=== PATIENT | male | born 1955 | race Caucasian/White ===

== ENCOUNTER 2016-08-02 06:41 | Inpatient (IN) | payer BC ==
[2016-06-30 13:27] VITALS: BMI 33.0
--- NOTE | 2016-06-30 14:02 | PAT Medication Instructions ---
Service Date Jun 30, 2016. Current Home Medication List Aspirin (Aspirin Ec), 81 MG PO QAM Atenolol (Tenormin), 25 MG PO QAM Atorvastatin (Lipitor), 80 MG PO QPM Clopidogrel (Plavix), 75 MG PO QAM Lisinopril (Zestril), 10 MG PO QAM Nitroglycerin (Nitrostat), 0.4 MG UT PRN Medication Instructions For Your Scheduled Surgery - Check with surgeon/cardiology/family doctor for instructions: Clopidogrel (Plavix), 75 MG PO QAM - Hold the following medications the morning of surgery: Lisinopril (Zestril), 10 MG PO QAM - Take the following medications the morning of surgery with a sip of water: Atenolol (Tenormin), 25 MG PO QAM Aspirin (Aspirin Ec), 81 MG PO QAM (okay to continue per surgeon instructions ) Nitroglycerin (Nitrostat), 0.4 MG UT PRN (if needed) - Take the following medications as scheduled the night before surgery: Atorvastatin (Lipitor), 80 MG PO QPM Nitroglycerin (Nitrostat), 0.4 MG UT PRN (if needed) If you have any questions please call us at [phone] (Gabriella Badillo PA-C) or [phone] or [phone]
[2016-06-30 14:27] LABS: BASO % 0.2 %; BASO ABS # 0.02 K/uL (0-0.2); COMPLETE YES; EOS % 2.9 %; HEMATOCRIT 43.1 % (42-52); IG% 0.3 %; LYMPH % 14.6 %; LYMPH ABS # 1.44 K/uL (1.2-3.4); MEAN CELL VOLUME 91.5 fL (80-100); MEAN CORPUSCULAR HEMOGLOBIN 31.2 pg (25-34); MEAN CORPUSCULAR HGB CONC 34.1 g/dl (32-36); MEAN PLATELET VOLUME 10.2 fL (7.4-10.4); MONO % 9.1 %; NEUT % 72.9 %; PLATELET COUNT 264 K/uL (130-400); RED BLOOD COUNT 4.71 M/uL (4.7-6.1); WHITE BLOOD COUNT 9.85 K/uL (4.8-10.8)
[2016-06-30 14:49] LABS: INR 1.1 (0.9-1.1); PARTIAL THROMBOPLASTIN RATIO 1.2; PROTHROMBIN TIME (PATIENT) 11.4 SECONDS (9.0-12.0)
[2016-06-30 14:54] LABS: BUN/CREATININE RATIO 15.3 (10-20); CREATININE 0.96 mg/dl (0.60-1.40); POTASSIUM 3.8 mmol/L (3.5-5.1)
[2016-06-30 15:01] LABS: CALCIUM 9.3 mg/dl (8.5-10.1); ESTIMATED AVERAGE GLUCOSE 123 mg/dl; HA1C FLAG Normal (Normal)
[2016-06-30 15:01] LABS: URINE APPEARANCE CLEAR (CLEAR); URINE BILIRUBIN NEG (NEG); URINE COLOR YELLOW; URINE EPITHELIAL CELL AUTO 0-5 /lpf (0-5); URINE NITRITE NEG (NEG); URINE PH 5.5 (4.5-7.5); URINE SPECIFIC GRAVITY 1.017 (1.000-1.030); UROBILINOGEN NEG (NEG); ZZUR CULT IF INDIC CLEAN CATCH NO
[2016-06-30 15:09] LABS: MANUAL MICROSCOPIC REQUIRED? NO; REVIEW REQ? NO
--- NOTE | 2016-08-01 15:13 | HISTORY & PHYSICAL EXAMINATION ---
DATE OF ADMISSION: 08/02/2016 CHIEF COMPLAINT: Chronic right knee pain. HISTORY OF PRESENT ILLNESS: This is a 60-year-old male patient of Dr. Arias'trevor complaining of chronic right knee pain, longstanding, now progressively getting worse. The patient has failed conservative treatment including aspirin, ice and a brace. The patient cannot use anti-inflammatories due to Plavix usage. The patient has increased pain with weightbearing activities and his pain does interfere with his activities of daily living. The patient has been diagnosed with end-stage osteoarthritis per clinical and radiographic exams. PAST MEDICAL HISTORY: Angina, coronary artery disease status post an SD in 2010, hypertension, hypercholesterolemia, history of a mini stroke, stent placement. SOCIAL HISTORY: Nonsmoker, nondrinker. PAST SURGICAL HISTORY: Cataract surgery, left knee replacement and stent placement. FAMILY HISTORY: Noncontributory. REVIEW OF SYSTEMS: The patient complains of chronic right knee pain, otherwise denies any shortness of breath, chest pain, nausea, vomiting or any other joint complaints. MEDICATIONS: 81 mg aspirin daily, Plavix 75 mg daily, atenolol 25 mg daily, lisinopril 10 mg daily, nitroglycerin 1 tablet sublingual, may repeat every 5 minutes until relief, atorvastatin 80 mg daily. ALLERGIES: INCLUDE ADHESIVE DRESSING. PHYSICAL EXAMINATION: GENERAL: Well-developed, well-nourished 60-year-old male in no acute distress. He is alert and oriented x3 and pleasant. HEAD, EYES, EARS, NOSE, AND THROAT: Normocephalic, atraumatic. Extraocular motions are intact. Pupils are equal and reactive to light. HEART: Regular rate and rhythm, no murmurs appreciated. LUNGS: Clear. ABDOMEN: Soft and nontender, bowel sounds are present. EXTREMITIES: Right knee reveals a mild effusion with limited range of motion of 0-120. He has a varus deformity with medial joint line tenderness. He has 5/5 strength with crepitation and passive range of motion. Neurologically and neurovascularly he is intact in his right lower extremity. DIAGNOSES: Right knee end-stage osteoarthritis, history of angina, coronary artery disease status post an SD in 2010, hypertension, hypercholesterolemia, history of mini stroke and history of stent placements. PLAN: The patient was advised of his diagnosis. Indications, risks, benefits, and postop course have all been reviewed. The patient wishes to proceed with a right total knee arthroplasty. Necessary consent forms, preoperative testing and clearances will be obtained.
[2016-08-02] VITALS (8 sets, daily range): BP systolic 114–166; BP diastolic 69–98; PULSE 56–85; TEMP 36.4–36.6; O2SAT 96–98; Ht 182.9 cm; Wt 112.2 kg
[~2016-08-02] VITALS: Ht 182.9 cm; Wt 112.2 kg
[~2016-08-02 06:41] MED LIST: ACETAMINOPHEN 500 MG TAB PO SCH; ASPI81TA28 PO; ATEN-173 PO; ATOR-26 PO; BUPIVACAINE 0.25% 30 ML VIAL ONE; BUPIVACAINE 0.5 % 5 MG/1 ML PF 10ML VIAL ONE; BUPIVACAINE LIPOSOME 266 MG, BUPIVACAINE/EPINEPHRINE INJ 50 ML, SODIUM CHLORIDE 0.9% PF... INFIL SCH; CEFAZOLIN 2000 MG/60 ML D5W 60 ML IV SCH; CLOP1TAB15 PO; CeleBREX 200 MG CAP PO SCH; DEXAMETHASONE 4 MG TAB PO SCH; FAMOTIDINE 20 MG TAB PO SCH; GABAPENTIN 300 MG CAP PO SCH; LACTATED RINGER'S 1000ML IV SCH; LACTATED RINGER'S 500 ML IV SCH; LISI-461 PO; METOCLOPRAMIDE HCL 10 MG TAB PO SCH; NTRGSL/4 UT; ROPIVACAINE 5MG/ML 30 ML 150 MG, BUPIVACAINE/EPINEPHR 0.5% MPF 30 ML, KETOROLAC TROMETH... INFIL SCH
[2016-08-02] MEDS ORDERED: LACTATED RINGER'S 1000ML 1,000 ML IV PRN (09:12)
[2016-08-02] MEDS ORDERED: FENTANYL CITRATE INJ 50 MCG/1 ML 2 ML VIAL IV PRN (09:15)
[2016-08-02] MEDS ORDERED: ONDANSETRON INJ 2 MG/ML 2 ML VIAL IV PRN ×2 (09:15→13:00)
[2016-08-02] MEDS ORDERED: MIDAZOLAM HCL 1 MG/ML 2ML VIAL ONE ×2 (09:36→11:26)
[2016-08-02] MEDS ORDERED: FENTANYL CITRATE INJ 50 MCG/1 ML 2 ML VIAL ONE (09:36)
--- NOTE | 2016-08-02 10:09 | History & Physical Bridge Note ---
H&P Re-Evaluation Bridge Note: I have examined the patient, reviewed the History & Physical and in the interval since the performance of the History & Physical I have noted the following changes of clinical significance: No changes noted
[2016-08-02] MEDS ORDERED: ORTHO JOINT ANESTHETIC ONE (10:29)
[2016-08-02] MEDS ORDERED: PHENYLEPHRINE 100MCG/ML 5ML SYR ONE (10:59)
[2016-08-02] MEDS ORDERED: EpHEDrine SULFATE 50MG/5ML SYR ONE (10:59)
[2016-08-02] MEDS ORDERED: PROPOFOL IV EMULSION 10 MG/ML 20 ML VIAL IV ONE ×3 (10:59→12:27)
[2016-08-02] MEDS ORDERED: BACITRACIN 50000 UNIT VIAL IR ONE (11:20)
[2016-08-02] MEDS ORDERED: POVIDONE-IODINE OP SOLN 30 ML BTL TOP ONE (11:20)
[2016-08-02] MEDS ORDERED: SOD PHOSPHATE/SOD BIPHOSPHATE ENEMA 132 ML BTL PR PRN (13:00)
[2016-08-02] MEDS ORDERED: MoRPHine SULFATE 2 MG/ML CARP IV PRN (13:00)
[2016-08-02] MEDS ORDERED: ZOLPIDEM TARTRATE 5 MG TAB PO PRN (13:00)
[2016-08-02] MEDS ORDERED: MAGNESIUM HYDROXIDE SUSP 30 ML UDC PO PRN (13:00)
[2016-08-02] MEDS ORDERED: NITROGLYCERIN 0.4 MG SL PER TAB CHARGE UT PRN (13:00)
[2016-08-02] MEDS ORDERED: BISACODYL 10 MG SUPP PR PRN (13:00)
--- NOTE | 2016-08-02 13:03 | [facility] Operative Report ---
Operative Report Operative Date Aug 02, 2016. Pre-Operative Diagnosis Right knee degenerative joint disease Post-Operative Diagnosis same Procedure(s) Performed right total knee arthroplasty Surgeon Dr. Saeed Arias Bus Transportation Manager Surgeon(s) Kg Pizarro PA-C Estimated Blood Loss 5 ml Findings tricompartmental djd oa varus grade 4 medial and patellofemoral Specimens A. Right knee bone and tissue Drains 2 hemovac Anesthesia spinal sedation orthomix Complication(s) None Disposition Recovery Room / PACU Indications end stage djd oa I attest to the content of the Intraoperative Record and any orders documented therein. Any exceptions are noted below.
--- NOTE | 2016-08-02 13:26 | Anesthesiology Progress Note ---
Anesthesia Post Op Note Date & Time Aug 02, 2016 at 13:25 Vital Signs Pain Intensity: 0 Vital Signs Past 12 Hours Date Time Temp Pulse Resp B/P Pulse Ox O2 Delivery O2 Flow Rate FiO2 08/02/16 13:14 83 21 105/61 96 08/02/16 13:14 84 21 08/02/16 13:09 86 22 96 08/02/16 13:09 86 22 08/02/16 13:08 121/84 08/02/16 13:07 86 17 08/02/16 13:07 88 17 96 08/02/16 13:03 100/65 08/02/16 13:02 93 23 08/02/16 13:02 92 23 96 08/02/16 12:58 102/65 08/02/16 12:57 36.5 89 16 100/69 96 Nasal Cannula 2 08/02/16 12:57 90 18 08/02/16 12:57 90 18 95 08/02/16 08:09 36.6 56 20 166/98 98 Room Air Notes Mental Status: alert / awake / arousable, participated in evaluation Nausea / Vomiting: adequately controlled Pain: adequately controlled Airway Patency, RR, SpO2: stable & adequate BP & HR: stable & adequate Hydration State: stable & adequate Neuraxial Anesthesia: was administered, sensory block is resolving Anesthetic Complications: no major complications apparent
--- NOTE | 2016-08-02 13:36 | DIAGNOSTIC IMAGING REPORT ---
RIGHT KNEE 2 VIEWS History: Right total knee arthroplasty. Degenerative arthritis. Postop. FINDINGS: The patient is status post a right total knee arthroplasty. The hardware is intact. No fracture or dislocation. Skin ava and surgical drains are in place. IMPRESSION: Right total knee arthroplasty. No evidence for hardware complication. Electronically signed by: Shekhar Domingo M.D. 08/02/2016 1:34 PM
--- NOTE | 2016-08-02 13:49 | OPERATIVE REPORT ---
DATE OF OPERATION: 08/02/2016 INDICATION FOR PROCEDURE: The patient is a 60-year-old male with chronic progressive osteoarthritis in his right knee. He had a previous successful left knee replacement. In his right knee, he has a varus knee. He is [id number] in the medial compartment. He has subluxation of the femur and the tibia. He has tricompartmental DJD with tricompartmental osteophytes and some lateral alignment of the patella. PREOPERATIVE DIAGNOSIS: End-stage severe osteoarthritis of the right knee. POSTOPERATIVE DIAGNOSIS: Same. PROCEDURE: Right total knee arthroplasty. SURGEON: Dr. Arias. JUNIOR BRAND MANAGER: GITA Robles. ANESTHESIA: Spinal, IV sedation, regional block, and ortho mix. OPERATIVE PROCEDURE: The patient was taken to the operating room and anesthetized under anesthesia as dictated. He was placed supine on the operating room table. Pneumatic tourniquet was placed about his right upper thigh. Then his right leg was examined under anesthesia. He does have a trace flexion contracture, but he had flexion only to 115 degrees and no ligamentous instability. He had a moderately large effusion. His right lower extremity was prepped and draped in sterile fashion. His right leg was elevated, exsanguinated with Esmarch bandage. Pneumatic tourniquet was raised to 350 mmHg because of his large size. An anterior incision made across the right knee. Skin was incised sharply. Subcutaneous flaps were elevated. An incision was made through the medial retinaculum carried up into the mid third of the quadriceps tendon and down to the medial tibial tubercle. Intra-articular findings demonstrated severe tricompartmental DJD. He had multiple loose bodies, tricompartmental osteophytes, grade 4 trochlear DJD, and grade 4 medial compartment DJD. I used the Banda \T\ Nephew Journey 2.0, total knee arthroplasty system using Visionaire MRI templating. His femur was sized for 8 and tibia for 7. To expose the knee, the infrapatellar fat pad was resected. The cruciate ligaments and meniscus remnants were resected. The fat pad over the anterior femur for placement of the component in that area was resected. The lateral synovial bands were released. The femur was exposed. The custom femoral cutting block was pinned in position and the distal femoral cut was made. This allowed us to fully extend the knee and chris the patella, perform a subperiosteal peel lateral release around the patella and the width was measured and width reproduced using a freehand cut technique and a 35 patella component which was slightly biased to the medial side. He had a wide large patella but it was more narrow from superior to inferior and 35 was the best fit in that diameter. The excess lateral facet of the patella had to be beveled off to prevent any impingement of the bone on the femoral condyle of the prosthesis. Drill holes for the patella were made. The femur was re-exposed. The size 8 5-in-1 cutting block was pinned in position and then the anterior, posterior and chamfer cuts were made. Then the tibia was subluxed and the tibial cutting block was pinned in position and the proximal tibia cut was made. This revealed a large multiloculated cyst in the posterior tibial plateau centrally which was consistent with degenerative ganglion type cyst. This was curetted out. At the sclerotic medial side, a drill hole was placed for a cement fixation enhancement. All the osteophytes were resected about the tibia. We used the lamina welding machine operator thermit to balance the ligaments. The patient was a little tighter medial than lateral. We did a posteromedial releases along the subperiosteal tibia medial side. Then we went ahead and exposed the tibia and then placed the 7 component in external rotation in line with the tibial tubercle and the component was pinned in position. The punch for the stem was used. The femoral size 8 trial was inserted, centered and the notch cutting devices were used, and a collet was placed. There was still too much tightness in the medial side to have appropriate ligamentous balance. We went ahead and used the lamina welding machine operator thermit and pie crusted the MCL until there was appropriate release there and then went ahead and I was able to place in a 10 trial insert which gave balanced ligaments through full range of motion and patella tracked centrally with the patellar trial in place. The trials were removed. Then the anesthetic cocktail was injected per protocol. The knee was copiously irrigated with pulsatile lavage antibiotic solution with bacitracin. The final components were cemented with Simplex G cement. The final components were the Banda \T\ Nephew Journey 2.0 size 8 Oxinium right femoral component, the 7 tibial baseplate and the 10 poly insert and the 35 patella. While the cement cured, we used Betadine soak per protocol. The knee was then copiously irrigated with antibiotic solution and bacitracin. Two drains were brought out laterally and connected to Hemovac. The quadriceps tendon and medial retinaculum were closed with interrupted [id number] #1 Vicryl sutures after the knee was copiously irrigated with antibiotic solution with bacitracin. The knee was taken through full range of motion. Subcutaneous tissues were closed with interrupted 2-0 Vicryl. Skin closed with ava and a standard dressing was applied due to adhesive allergy. GITA Robles was my assistant signal maintainer and functioned as assistant signal maintainer throughout the procedure. He assisted in patient positioning, prepping, draping, leg positioning, instrument management, soft tissue retraction, and performed the part of the subcutaneous closure and assisted in skin closure and dressings and will participate in the postoperative care of the patient. I attest to the content of the Intraoperative Record and any orders documented therein. Any exceptio ns are noted below.
[2016-08-02] MEDS: D5W AND 1/2NSS + 20MEQ KCL 1,000 ML IV SCH (14:40)
[2016-08-02] MEDS ORDERED: MoRPHine SULFATE 4 MG/ML 1 ML CARP\\VIAL IV PRN (14:45)
[2016-08-02] MEDS ORDERED: PNEUMOCOCCAL POLYSACCHARIDES 25 MCG/0.5 ML VIAL/SYR IM. ONE (15:00)
[2016-08-02] MEDS ORDERED: PNEUMOCOCCAL ADMINISTRATION CHARGE ONE (15:00)
[2016-08-02] MEDS: ACETAMINOPHEN 500 MG TAB PO SCH ×2 (16:22→23:13)
[2016-08-02] MEDS: CEFAZOLIN IV 2,000 MG in DEXTROSE 5% 50ML 50 ML IV SCH (18:06)
[2016-08-02] MEDS: OXYCODONE HCL 10 MG TABCR (OXYCONTIN) PO SCH (21:04)
[2016-08-02] MEDS: DOCUSATE SODIUM 100 MG CAP PO SCH (21:04)
[2016-08-02] MEDS: ATORVASTATIN 40 MG TAB PO SCH (21:05)
[2016-08-03] MEDS: D5W AND 1/2NSS + 20MEQ KCL 1,000 ML IV SCH ×2 (00:45→11:36)
[2016-08-03] MEDS: CEFAZOLIN IV 2,000 MG in DEXTROSE 5% 50ML 50 ML IV SCH (01:30)
[2016-08-03 03:08] VITALS: BP 114/69; PULSE 64; TEMP 36.5; O2SAT 97
[2016-08-03 07:12] VITALS: BP 122/77; PULSE 61; TEMP 36.4; O2SAT 96
[2016-08-03 07:31] LABS: HEMATOCRIT 36.3 % (42-52); MEAN CELL VOLUME 91.9 fL (80-100); MEAN CORPUSCULAR HEMOGLOBIN 31.1 pg (25-34); MEAN CORPUSCULAR HGB CONC 33.9 g/dl (32-36); MEAN PLATELET VOLUME 10.5 fL (7.4-10.4); PLATELET COUNT 258 K/uL (130-400); RED BLOOD COUNT 3.95 M/uL (4.7-6.1); WHITE BLOOD COUNT 29.39 K/uL (4.8-10.8)
--- NOTE | 2016-08-03 07:47 | Orthopedic Progress Note ---
Orthopedic Progress Note Date of Service Aug 03, 2016. Subjective Post OP Day: 1 Reports: feeling well, pain controlled w PO medications, Denies: SOB, calf pain , chest pain, complaints, light headedness, nausea / vomiting Objective calves soft nontender, N/V intact, capillary refill less than 2 sec., dressing C /D/I, A&O x3, toes mobile Date Time Temp Pulse Resp B/P Pulse Ox O2 Delivery O2 Flow Rate FiO2 08/03/16 07:12 36.4 61 16 122/77 96 Room Air 08/03/16 03:08 36.5 64 14 114/69 97 Room Air 08/02/16 23:10 Room Air 08/02/16 22:54 36.4 76 16 114/69 96 Room Air 08/02/16 20:19 97 Room Air 08/02/16 19:49 36.5 85 16 123/75 96 Nasal Cannula 1.0 08/02/16 16:50 36.5 76 16 134/82 96 Nasal Cannula 1.0 08/02/16 15:55 36.4 78 16 121/73 98 08/02/16 15:35 Nasal Cannula 1.0 08/02/16 14:41 72 16 128/82 96 Nasal Cannula 1.0 08/02/16 14:15 75 14 132/84 96 Nasal Cannula 1.0 08/02/16 13:40 100 Nasal Cannula 2.0 08/02/16 13:30 36.6 08/02/16 13:25 79 22 96 08/02/16 13:25 79 22 08/02/16 13:23 123/80 08/02/16 13:20 82 15 95 08/02/16 13:20 83 15 08/02/16 13:18 113/64 08/02/16 13:15 88 18 08/02/16 13:15 88 18 97 08/02/16 13:14 83 21 105/61 96 08/02/16 13:14 84 21 08/02/16 13:09 86 22 96 08/02/16 13:09 86 22 08/02/16 13:08 121/84 08/02/16 13:07 86 17 08/02/16 13:07 88 17 96 08/02/16 13:03 100/65 08/02/16 13:02 93 23 08/02/16 13:02 92 23 96 08/02/16 12:58 102/65 08/02/16 12:57 36.5 89 16 100/69 96 Nasal Cannula 2 08/02/16 12:57 90 18 08/02/16 12:57 90 18 95 08/02/16 08:09 36.6 56 20 166/98 98 Room Air Laboratory Results 24 Hours: Test 08/03/16 06:35 Hematocrit 36.3 % Hemoglobin 12.3 g/dL Assessment & Plan Assessment: POD #1, Right TKA Plan: PT/ OT DVT proph- Plavix/ ASA D/C planning- Home w OPPT As per medicine. Inhouse Planning Pain Management: Oxycontin, Morphine, PO Tylenol, Oxy IR DVT Prophylaxis: ASA, other (Plavix) Discharge Planning Discharge Planning: home with oppt Pain Management: Oxycontin, PO Tylenol, Oxy IR DVT Prophylaxis: TEDs, ASA, other (Plavix) Therapy: Physical Therapy, Occupational Therapy
[2016-08-03 08:03] LABS: BUN/CREATININE RATIO 17.5 (10-20); CALCIUM 8.2 mg/dl (8.5-10.1); CREATININE 0.85 mg/dl (0.60-1.40); POTASSIUM 4.5 mmol/L (3.5-5.1)
--- NOTE | 2016-08-03 08:28 | Anesthesiology Progress Note ---
Anesthesia Post Op Note Date & Time Aug 03, 2016 at 08:27 Vital Signs Pain Intensity: 0.0 Vital Signs Past 12 Hours Date Time Temp Pulse Resp B/P Pulse Ox O2 Delivery O2 Flow Rate FiO2 08/03/16 07:12 36.4 61 16 122/77 96 Room Air 08/03/16 03:08 36.5 64 14 114/69 97 Room Air 08/02/16 23:10 Room Air 08/02/16 22:54 36.4 76 16 114/69 96 Room Air Notes Mental Status: alert / awake / arousable, participated in evaluation Pt Amnestic to Procedure: Yes Nausea / Vomiting: adequately controlled Pain: adequately controlled Airway Patency, RR, SpO2: stable & adequate BP & HR: stable & adequate Hydration State: stable & adequate Neuraxial Anesthesia: sensory block resolved Anesthetic Complications: no major complications apparent
[2016-08-03] MEDS: ACETAMINOPHEN 500 MG TAB PO SCH ×3 (08:31→22:56)
[2016-08-03] MEDS: ASPIRIN 81 MG ECTAB PO SCH (08:32)
[2016-08-03] MEDS: DOCUSATE SODIUM 100 MG CAP PO SCH ×2 (08:32→20:23)
[2016-08-03] MEDS: MULTIVITAMIN TAB PO SCH (08:33)
[2016-08-03] MEDS: CLOPIDOGREL BISULFATE 75 MG TAB PO SCH (08:33)
[2016-08-03] MEDS: PANTOprazole SOD 40 MG TAB PO SCH (08:34)
[2016-08-03] MEDS: LISINOPRIL 10 MG TAB PO SCH (08:34)
[2016-08-03] MEDS: OXYCODONE HCL 10 MG TABCR (OXYCONTIN) PO SCH ×2 (08:38→20:23)
[2016-08-03 10:59] VITALS: BP 116/67; PULSE 66; TEMP 36.6; O2SAT 97
--- NOTE | 2016-08-03 14:37 | Medical Consult ---
Consultation Date of Consultation: Aug 03, 2016. Attending Physician: Saeed Arias M.D. Reason for Consultation: Medical Management History of Present Illness Mr. Gupta is a 60 y/o male with PMHx of CAD with [place] and S/P Stent x 3, TIA, HLD , and HTN who is S/P R TKA. Patient states his blood pressure has been adequately controlled on current two drug regimen. He reports that he has Nitro at home but has not had to use this in the setting of his CAD. He is ambulating and states his R knee just feels like a cramp but doing well. Has tolerated a diet and is passing gas. Past Medical/Surgical History Medical Problems: (1) Bronchiolitis Status: Acute Family History Diabetes mellitus Heart disease Hypertension Lung disease Social History Smoking Status: Former Smoker Smokeless Tobacco Use: No Alcohol Use: none Drug Use: none Allergies Coded Allergies: Adhesives (Verified Allergy, Unknown, PAPER TAPE, RASH AND IRRITATION, 08/02) NO KNOWN DRUG ALLERGIES (Verified Allergy, Unknown, NKA, 08/02/16) Current Inpatient Medications Current Inpatient Medications Medications (Trade) Dose Ordered Sig/Reshma Route Start Time Stop Time Status Last Admin Dose Admin Aspirin (Ecotrin Tab) 81 mg QAM PO 08/03/16 09:00 09/02/16 08:59 08/03/16 08:32 81 MG Atenolol (Tenormin Tab) 25 mg QAM PO 08/03/16 09:00 09/02/16 08:59 08/03/16 08:35 25 MG Atorvastatin Calcium (Lipitor Tab) 80 mg QPM PO 08/02/16 21:00 09/01/16 20:59 08/02/16 21:05 80 MG Clopidogrel Bisulfate (plAVix TAB) 75 mg QAM PO 08/03/16 09:00 09/02/16 08:59 08/03/16 08:33 75 MG Lisinopril (Zestril Tab) 10 mg QAM PO 08/03/16 09:00 09/02/16 08:59 08/03/16 08:34 10 MG Nitroglycerin (Nitrostat Tab) 0.4 mg UD PRN UT 08/02/16 13:00 09/01/16 12:59 Oxycodone HCl (Roxicodone Immediate Rel Tab) 1 TABLET FOR PAIN RATING... Q4H PRN PO 08/02/16 13:00 08/16/16 12:59 Oxycodone HCl (Oxycontin Tab) 10 mg Q12 PO 08/02/16 21:00 08/16/16 20:59 08/03/16 08:38 10 MG Morphine Sulfate (MoRPHine SULFATE INJ) 2 mg Q2H PRN IV 08/02/16 13:00 08/16/16 12:59 Acetaminophen (Tylenol Tab) 1,000 mg Q8H PO 08/02/16 16:00 09/01/16 12:59 08/03/16 08:31 1,000 MG Magnesium Hydroxide (Milk Of Magnesia Susp) 30 ml Q6H PRN PO 08/02/16 13:00 09/01/16 12:59 Bisacodyl (Dulcolax Supp) 10 mg DAILY PRN UT 08/02/16 13:00 09/01/16 12:59 Sodium Biphosphate/ Sodium Phosphate (Fleet Enema) 132 ml DAILY PRN UT 08/02/16 13:00 09/01/16 12:59 Docusate Sodium (coLACE CAP) 100 mg BID PO 08/02/16 21:00 09/01/16 20:59 08/03/16 08:32 100 MG Diphenhydramine HCl (Benadryl Cap) 25 mg Q8H PRN PO 08/02/16 13:00 09/01/16 12:59 Zolpidem Tartrate (Ambien Tab) 5 mg HSZ PRN PO 08/02/16 13:00 09/01/16 12:59 Multivitamins (Multivitamin Tab) 1 tab QAM PO 08/03/16 09:00 09/02/16 08:59 08/03/16 08:33 1 TAB Ondansetron HCl (Zofran Inj) 4 mg Q6H PRN IV 08/02/16 13:00 09/01/16 12:59 Pantoprazole Sodium (Protonix Tab) 40 mg QAM PO 08/03/16 09:00 09/02/16 08:59 08/03/16 08:34 40 MG Morphine Sulfate (MoRPHine SULFATE INJ) 4 mg Q2H PRN IV 08/02/16 14:45 08/16/16 14:44 Review of Systems Constitutional: No chills, No fever Eyes: No worsening of vision ENT: No nasal symptoms, No sore throat, No trouble swallowing Respiratory: No cough, No shortness of breath Cardiovascular: No chest pain Abdomen: No constipation, No diarrhea, No nausea, No pain, No vomiting Musculoskeletal: No calf pain, No swelling Genitourinary - Male: No dysuria Neurologic: No vertigo, No weakness Endocrine: No fatigue Hematologic / Lymphatic: No abnormal bleeding/bruising, No clotting problems Integumentary: No rash Physical Exam Date Time Temp Pulse Resp B/P Pulse Ox O2 Delivery O2 Flow Rate FiO2 08/03/16 10:59 36.6 66 16 116/67 97 Room Air 08/03/16 10:32 Room Air 08/03/16 07:12 36.4 61 16 122/77 96 Room Air 08/03/16 03:08 36.5 64 14 114/69 97 Room Air 08/02/16 23:10 Room Air 08/02/16 22:54 36.4 76 16 114/69 96 Room Air 08/02/16 20:19 97 Room Air 08/02/16 19:49 36.5 85 16 123/75 96 Nasal Cannula 1.0 08/02/16 16:50 36.5 76 16 134/82 96 Nasal Cannula 1.0 08/02/16 15:55 36.4 78 16 121/73 98 08/02/16 15:35 Nasal Cannula 1.0 08/02/16 14:41 72 16 128/82 96 Nasal Cannula 1.0 General Appearance: WD/WN, no apparent distress Head: normocephalic, atraumatic Eyes: sclerae normal ENT: hearing grossly normal Neck: supple, no JVD, trachea midline Respiratory/Chest: lungs clear, normal breath sounds, no respiratory distress, no accessory muscle use Cardiovascular: regular rate, rhythm, no gallop, no murmur Abdomen/GI: normal bowel sounds, non tender, soft Back: normal inspection, no CVA tenderness Extremities/Musculoskelatal: no calf tenderness, no pedal edema, + pertinent finding (R knee with LANRE wrap that is clean/dry/intact; drain applied draining dark red blood) Neurologic/Psych: alert, oriented x 3 Skin: normal color, warm/dry Laboratory Results Last 24 Hours Test 08/03/16 06:35 White Blood Count 29.39 K/uL Red Blood Count 3.95 M/uL Hemoglobin 12.3 g/dL Hematocrit 36.3 % Mean Corpuscular Volume 91.9 fL Mean Corpuscular Hemoglobin 31.1 pg Mean Corpuscular Hemoglobin Concent 33.9 g/dl RDW Standard Deviation 44.6 fL RDW Coefficient of Variation 13.3 % Platelet Count 258 K/uL Mean Platelet Volume 10.5 fL Sodium Level 141 mmol/L Potassium Level 4.5 mmol/L Chloride Level 107 mmol/L Carbon Dioxide Level 24 mmol/L Anion Gap 10.0 mmol/L Blood Urea Nitrogen 15 mg/dl Creatinine 0.85 mg/dl Est Creatinine Clear Calc Drug Dose 116.6 ml/min Estimated GFR () 108.2 Estimated GFR (Non- 93.4 BUN/Creatinine Ratio 17.5 Random Glucose 126 mg/dl Calcium Level 8.2 mg/dl Assessment & Plan Mr. Gupta is a 60 y/o male with PMHx of CAD with [place] and S/P Stent x 3, TIA, HLD , and HTN who is S/P R TKA. S/P R TKA: - Pain Management, DVT Prophylaxis, PT/OT per primary team CAD with [place] and S/P Stent x 3: - ASA 81 mg daily and Plavix 75 mg daily - Atorvastatin 80 mg daily - Nitro 0.4 mg SL PRN HTN: - Atenolol 25 mg daily - Lisinopril 10 mg daily Thanks for the consultation. Will continue to follow. ------- Attending Consultation Note & Attestation: Pt seen/examined, chart reviewed, and care plan d/w GITA Gaines. I agree with the newberry components of her consult documentation. 60yo male with known CAD, HTN, & hyperlipidemia who underwent uneventful right TKR by Dr. Arias. During my visit he denies cp, sob, lama, nausea, emesis, abd pain. He has already had a bowel movement post-op. Right knee pain is controlled. PMH, PSH, allergies, meds, sochx, famhx, ros - reviewed VSS, afebrile gen - nad neck - no JVD heart - RRR, s1, s2, no murmur lungs - CTA b/l abd - soft, NT, BS+ ext - edema right ankle, none on left; pulses 2+ b/l labs - WBC 29 Cr 0.8 Hb 12.3 A/P: 1. right TKR 2. HTN - controlled; cont outpatient meds 3. CAD with prior [place] and stents - no ischemic symptoms post-op. Continue chronic meds - asa, plavix, statin, BB, etc. 4. mild acute blood loss anemia - follow. 5. leukocytosis - no evidence of any infectious process. Likely leukamoid rxn to steroids and perioperative stress. Recheck cbc in AM to ensure resolution. Thanks for consult; will follow. Juan Russell MD
[2016-08-03 14:57] VITALS: BP 125/73; PULSE 58; TEMP 36.5; O2SAT 97
[2016-08-03] MEDS: OXYCODONE HCL IR 5 MG TAB (IMMEDIATE RELEASE) PO PRN ×2 (18:10→23:09)
[2016-08-03] MEDS: ATORVASTATIN 40 MG TAB PO SCH (21:00)
[2016-08-03 22:56] VITALS: BP 118/69; PULSE 61; TEMP 36.6; O2SAT 97
[2016-08-04 06:29] VITALS: BP 133/77; PULSE 52; TEMP 36.7; O2SAT 99
[2016-08-04 06:46] LABS: HEMATOCRIT 32.1 % (42-52); MEAN CELL VOLUME 94.1 fL (80-100); MEAN CORPUSCULAR HEMOGLOBIN 31.1 pg (25-34); MEAN PLATELET VOLUME 10.7 fL (7.4-10.4); PLATELET COUNT 239 K/uL (130-400); RED BLOOD COUNT 3.41 M/uL (4.7-6.1); WHITE BLOOD COUNT 17.46 K/uL (4.8-10.8)
[2016-08-04 07:23] LABS: BUN/CREATININE RATIO 20.8 (10-20); CALCIUM 8.5 mg/dl (8.5-10.1); CREATININE 0.88 mg/dl (0.60-1.40); POTASSIUM 4.2 mmol/L (3.5-5.1)
[2016-08-04] MEDS: PANTOprazole SOD 40 MG TAB PO SCH (07:25)
[2016-08-04] MEDS: LISINOPRIL 10 MG TAB PO SCH (07:25)
[2016-08-04] MEDS: OXYCODONE HCL 10 MG TABCR (OXYCONTIN) PO SCH (07:25)
[2016-08-04] MEDS: ASPIRIN 81 MG ECTAB PO SCH (07:26)
[2016-08-04] MEDS: CLOPIDOGREL BISULFATE 75 MG TAB PO SCH (07:26)
[2016-08-04] MEDS: MULTIVITAMIN TAB PO SCH (07:26)
--- NOTE | 2016-08-04 07:45 | Orthopedic Progress Note ---
Orthopedic Progress Note Date of Service Aug 04, 2016. Subjective Post OP Day: 2 Reports: feeling well, pain controlled w PO medications, Denies: SOB, calf pain , chest pain, complaints, light headedness, nausea / vomiting Objective calves soft nontender, N/V intact, capillary refill less than 2 sec., incision C /D/I, A&O x3, toes mobile Date Time Temp Pulse Resp B/P Pulse Ox O2 Delivery O2 Flow Rate FiO2 08/04/16 06:29 36.7 52 14 133/77 99 Room Air 08/03/16 22:56 36.6 61 16 118/69 97 Room Air 08/03/16 22:50 Room Air 08/03/16 19:25 Room Air 08/03/16 14:57 36.5 58 14 125/73 97 Room Air 08/03/16 14:45 Room Air 08/03/16 10:59 36.6 66 16 116/67 97 Room Air 08/03/16 10:32 Room Air Laboratory Results 24 Hours: Test 08/04/16 05:00 Hematocrit 32.1 % Hemoglobin 10.6 g/dL Assessment & Plan Assessment: POD #2, Right TKA Plan: PT/ OT DVT proph- Plavix/ ASA D/C planning- Home w OPPT today As per medicine. Inhouse Planning Pain Management: Oxycontin, Morphine, PO Tylenol, Oxy IR DVT Prophylaxis: ASA, other (Plavix) Discharge Planning Discharge Planning: home with oppt Pain Management: Oxycontin, PO Tylenol, Oxy IR DVT Prophylaxis: TEDs, ASA, other (Plavix) Therapy: Physical Therapy, Occupational Therapy
[2016-08-04] MEDS ORDERED: RXC5 PO (07:48)
[2016-08-04] MEDS ORDERED: ACET-1138 PO (07:48)
[2016-08-04] MEDS ORDERED: ONDA8TAB12 PO (07:48)
[2016-08-04] MEDS ORDERED: OXYSR10 PO (07:48)
--- NOTE | 2016-08-04 07:50 | Discharge Instructions ---
Discharge Instructions Admission Reason for Admission: Right Knee Degenerative Joint Disease Discharge Discharge Diagnosis / Problem: s/p Rt TKA Discharge Goals Goal(s): Improve function Activity Recommendations Activity Limitations: as noted below . Instructions / Follow-Up Instructions / Follow-Up ACTIVITY RECOMMENDATIONS: SELF CARE INSTRUCTIONS AFTER TOTAL KNEE REPLACEMENT A. You may need to continue a physical therapy program after discharge from the hospital. There are several options available to you. Your doctor will assist you in selecting the best one for you. 1. An out-patient facility 2 to 3 times a week for therapy or home therapy. 2. Continue working on all exercises taught to you in the hospital. Your goals should be to increase bending of your knee to 90 degrees and beyond and to fully straighten your knee. B. You may progress at your own pace from walking with a walker or crutches to a cane; then to no assistive devices. C. Make walking a part of your daily routine. Be up as much as comfortable with rest periods throughout the day. Rest with leg elevation is very important. Use the ice wrap frequently for the first 3-4 weeks. D. There are no restrictions on activities. You may ride in a car, shop, participate in director biologics and all social activities. E. Wear the long elastic stockings (MINGO hose) 20 hours a day for 2 weeks after surgery. They can be removed several times a day for laundering and for a bath. F. You may shower, no tub baths until cleared by your doctor. SPECIAL CARE INSTRUCTIONS: VERY IMPORTANT TO READ AND REVIEW A. There are a few signs you need to watch for after you are home. Call [facility] if you notice any of the followin. Increased severe knee pain. Some pain is expected especially when you exercise. 2. Increased swelling in your leg or knee; pain or swelling of the calf muscle in either lower leg. 3. Any fluid drainage from the incision. 4. Shortness of breath or chest pain. B. Please call [facility] at if you have any concerns or questions about your operation or recovery. The doctor or his nurse will return your call promptly. C. You must take antibiotics before dental work, bladder, bowel or other surgery. Your doctor will provide you with a permanent care to carry describing this precaution. IMPORTANT: * REMEMBER TO TAKE ASPIRIN, 81 MG, TWICE DAILY FOR 4 WEEKS UNLESS OTHERWISE DIRECTED. THIS IS YOUR BLOOD THINNER. * HIGH RISK PATIENTS MAY BE PRESCRIBED A STRONGER BLOOD THINNER. THIS WILL BE PROVIDED AT DISCHARGE. * CALL IF INCREASED PAIN, REDNESS, DRAINAGE OR FEVER GREATER THAT 101. * WEAR MINGO HOSE 20 HOURS PER DAY FOR 2 WEEKS. * YOU MAY HAVE A LARGE BAND-AID LIKE DRESSING (SILVERON). THIS WILL REMAIN ON YOUR INCISION FOR 7 DAYS, THEN CAN BE REMOVED. IF INCISION IS LEAKING THROUGH DRESSING, CALL THE OFFICE . FOLLOW UP VISIT: If appointment is not already scheduled: Please call [facility] to make a follow-up appointment for 2 weeks after your surgery at . Current Hospital Diet Patient's current hospital diet: Regular Diet Discharge Diet Recommended Diet: Regular Diet Procedures Procedures Performed: Right Total Knee Arthroplasty Cemented Pending Studies Studies pending at discharge: no Laboratory Results Hemoglobin A1c Test 06/30/16 14:08 Range/Units Estimated Average Glucose 123 mg/dl Hemoglobin A1c 5.9 H 4.5-5.6 % Medical Emergencies . Who to Call and When: Medical Emergencies: If at any time you feel your situation is an emergency, please call 911 immediately. . Non-Emergent Contact Non-Emergency issues call your: Primary Care Provider . "Provider Documentation" section prepared by Kg Pizarro. VTE Core Measure Inpt VTE Proph given/why not?: Other Anticoagulation (asa, plavix), T.E.D. Stockings, SCD's
[2016-08-04] MEDS: OXYCODONE HCL IR 5 MG TAB (IMMEDIATE RELEASE) PO PRN (07:58)
[2016-08-04] MEDS: DOCUSATE SODIUM 100 MG CAP PO SCH (07:59)
[2016-08-04] MEDS: ACETAMINOPHEN 500 MG TAB PO SCH (08:00)
[2016-08-04 08:05] VITALS: BP 133/77; PULSE 52; TEMP 36.7; O2SAT 99
--- NOTE | 2016-08-04 09:17 | Progress Note ---
Subjective Date of Service: Aug 04, 2016. Subjective Pt evaluation today including: conversation w/ patient, physical exam, chart review, lab review, review of studies, conversation w/ immigration consultant, review of inpatient medication list Doing well, out of bed and walk with therapist, right knee local wounds looks good, no other complaint Problem List Medical Problems: (1) Bronchiolitis Status: Acute Review of Systems Constitutional: No chills, No fatigue, No fever, No problem reported, No sweats , No weakness, No weight loss Eyes: No diplopia, No discharge, No eye pain, No redness, No worsening of vision ENT: No dental problems, No hearing loss, No nasal symptoms, No sore throat, No tinnitus, No trouble swallowing, No unusual epistaxis Respiratory: No cough, No dyspnea at rest, No dyspnea on exertion, No hemoptysis, No shortness of breath, No sputum, No wheezing Cardiac: No PND, No chest pain, No claudication, No edema, No orthopnea, No palpitations Abdomen: No constipation, No diarrhea, No nausea, No pain, No vomiting Musculoskeletal: + joint pain, No calf pain, No muscle pain, No swelling Male : No dysuria, No hematuria, No incontinence, No nocturia more than once/ night, No slowing stream, No urinary frequency Neurologic: No balance problems, No memory loss, No numbness/tingling, No paralysis, No vertigo, No weakness Psychiatric: No anhedonism, No anxiety, No depression symptoms, No insomnia, No substance abuse Heme: No abnormal bleeding/bruising, No clotting problems, No night sweats, No swollen lymph nodes Endo: No excessive thirst, No excessive urination, No fatigue Skin: No bleeding, No color change, No itch, No new/changing skin lesions, No rash Objective Vital Signs Date Time Temp Pulse Resp B/P Pulse Ox O2 Delivery O2 Flow Rate FiO2 08/04/16 08:05 36.7 52 14 99 Room Air 08/04/16 06:29 36.7 52 14 133/77 99 Room Air 08/03/16 22:56 36.6 61 16 118/69 97 Room Air 08/03/16 22:50 Room Air 08/03/16 19:25 Room Air 08/03/16 14:57 36.5 58 14 125/73 97 Room Air 08/03/16 14:45 Room Air 08/03/16 10:59 36.6 66 16 116/67 97 Room Air 08/03/16 10:32 Room Air Physical Exam General Appearance: WD/WN, no apparent distress Eyes: normal inspection, PERRL, EOMI, sclerae normal ENT: normal ENT inspection, hearing grossly normal, pharynx normal Neck: supple, no adenopathy, thyroid normal, no JVD, no carotid bruits, trachea midline Respiratory/Chest: chest non-tender, lungs clear, normal breath sounds, no respiratory distress, no accessory muscle use Cardiovascular: regular rate, rhythm, no edema, no gallop, no JVD, no murmur Abdomen: normal bowel sounds, non tender, soft, no organomegaly, no pulsatile mass Extremities: normal range of motion, non-tender, normal inspection, no pedal edema, no calf tenderness, normal capillary refill, pelvis stable Neurologic/Psychiatric: switch coupler II-XII nml as tested, no motor/sensory deficits, alert, normal mood/affect, oriented x 3 Skin: normal color, warm/dry, no rash, + pertinent finding (right anterior knee incision looks good, ava in place local no hot swelling or drainage) Lymphatic: no adenopathy Laboratory Results Last 24 Hours Test 08/04/16 05:00 White Blood Count 17.46 K/uL Red Blood Count 3.41 M/uL Hemoglobin 10.6 g/dL Hematocrit 32.1 % Mean Corpuscular Volume 94.1 fL Mean Corpuscular Hemoglobin 31.1 pg Mean Corpuscular Hemoglobin Concent 33.0 g/dl RDW Standard Deviation 48.3 fL RDW Coefficient of Variation 14.0 % Platelet Count 239 K/uL Mean Platelet Volume 10.7 fL Sodium Level 143 mmol/L Potassium Level 4.2 mmol/L Chloride Level 107 mmol/L Carbon Dioxide Level 27 mmol/L Anion Gap 9.0 mmol/L Blood Urea Nitrogen 18 mg/dl Creatinine 0.88 mg/dl Est Creatinine Clear Calc Drug Dose 112.6 ml/min Estimated GFR () 106.7 Estimated GFR (Non- 92.1 BUN/Creatinine Ratio 20.8 Random Glucose 86 mg/dl Calcium Level 8.5 mg/dl Assessment and Plan 60 y/o male with PMHx of CAD with AZ and S/P Stent x 3, TIA, HLD, and HTN who was admitted to orthopedic service on 08/01/2016 S/P R TKA. Hospitalist was consulted on 08/03/2016 for medical management S/P R TKA: - Pain Management, DVT Prophylaxis, PT/OT per primary team continued doing well CAD with AZ and S/P Stent x 3: Stable - ASA 81 mg daily and Plavix 75 mg daily - Atorvastatin 80 mg daily - Nitro 0.4 mg SL PRN HTN: Stable - Atenolol 25 mg daily - Lisinopril 10 mg daily Mild acute blood loss anemia, I told patient to follow-up with PCP Continued [facility] stay due to: home environment unsafe for pt Discharge planning: home
--- NOTE | 2016-08-15 18:14 | DISCHARGE SUMMARY ---
HISTORY OF PRESENT ILLNESS: This is a 60-year-old male patient of Dr. Arias'trevor complaining of chronic right knee pain, long-standing, progressively getting worse. The patient failed conservative treatment and elected to proceed with a right total knee arthroplasty. PAST MEDICAL HISTORY: Angina, coronary artery disease status post an LA in 2010, hypertension, hypercholesterolemia, history of a mini stroke and stent placement. POSTOPERATIVE COURSE: The patient underwent a right total knee arthroplasty on 08/02/2016. She was followed closely with medical consultation, pain control, physical therapy and DVT prophylaxis in the form of her aspirin and Plavix. She did well postoperatively and was discharged home on postoperative day #2. PHYSICAL EXAMINATION: On discharge right knee Silverlon dressing was clean, dry and intact. There was no redness or drainage and no calf tenderness. Negative Homans sign. Neurologically and neurovascularly she was intact in her right lower extremity. DIAGNOSES: Status post right total knee arthroplasty with a history of angina, coronary artery disease status post an LA in 2010, hypertension, hypercholesterolemia, mini stroke and stent placement. PLAN: The patient was discharged home with outpatient physical therapy. She will continue her regimen of Plavix and aspirin for DVT prophylaxis per her primary care physician. She agreed to continue her preadmission medications and pain control. We will follow up with her as an outpatient as scheduled.
== END 2016-08-04 10:22 | disposition home or self-care (01) | DRG 470 ==
LOC: ENRESERVDT → ENRESERVTM → C.ACU 06:41 → C.3E 10:00
PROVIDERS: ADMIT Orthopaedic Surgery Sports Medicine; ATTEND Orthopaedic Surgery Sports Medicine
PROC: 0SRC0J9 Replacement of Right Knee Joint with Synthetic Substitute, Cemented, Open Approach (ICD-10-PCS; principal; 2016-08-02 10:00)
DX: M17.11 Unilateral primary osteoarthritis, right knee (principal); D62 Acute posthemorrhagic anemia; I25.10 Atherosclerotic heart disease of native coronary artery without angina pectoris; I25.2 Old myocardial infarction; I10 Essential (primary) hypertension; E78.00 Pure hypercholesterolemia, unspecified; Z86.73 Personal history of transient ischemic attack (TIA), and cerebral infarction without residual deficits; Z95.5 Presence of coronary angioplasty implant and graft; Z96.652 Presence of left artificial knee joint; Z79.82 Long term (current) use of aspirin; Z79.02 Long term (current) use of antithrombotics/antiplatelets; Z79.899 Other long term (current) drug therapy; Z83.3 Family history of diabetes mellitus; Z82.49 Family history of ischemic heart disease and other diseases of the circulatory system; Z83.6 Family history of other diseases of the respiratory system; Z87.891 Personal history of nicotine dependence; Z91.048 Other nonmedicinal substance allergy status; E78.5 Hyperlipidemia, unspecified; D72.829 Elevated white blood cell count, unspecified

== ENCOUNTER → 2016-12-29 | Outpatient (CLI) | payer BC ==
[~2016-12-29] MED LIST changes: +ACET-1138 PO; -ACETAMINOPHEN 500 MG TAB PO SCH; -BUPIVACAINE 0.25% 30 ML VIAL ONE; -BUPIVACAINE 0.5 % 5 MG/1 ML PF 10ML VIAL ONE; -BUPIVACAINE LIPOSOME 266 MG, BUPIVACAINE/EPINEPHRINE INJ 50 ML, SODIUM CHLORIDE 0.9% PF... INFIL SCH; -CEFAZOLIN 2000 MG/60 ML D5W 60 ML IV SCH; -CeleBREX 200 MG CAP PO SCH; -DEXAMETHASONE 4 MG TAB PO SCH; -FAMOTIDINE 20 MG TAB PO SCH; -GABAPENTIN 300 MG CAP PO SCH; -LACTATED RINGER'S 1000ML IV SCH; -LACTATED RINGER'S 500 ML IV SCH; -METOCLOPRAMIDE HCL 10 MG TAB PO SCH; +OXYSR10 PO; -ROPIVACAINE 5MG/ML 30 ML 150 MG, BUPIVACAINE/EPINEPHR 0.5% MPF 30 ML, KETOROLAC TROMETH... INFIL SCH; +RXC5 PO
[2016-12-29 13:16] LABS: BASO % 0.3 %; BASO ABS # 0.02 K/uL (0-0.2); COMPLETE YES; EOS % 2.8 %; HEMATOCRIT 43.5 % (42-52); IG% 0.3 %; LYMPH % 17.2 %; LYMPH ABS # 1.36 K/uL (1.2-3.4); MEAN CORPUSCULAR HEMOGLOBIN 29.1 pg (25-34); MEAN PLATELET VOLUME 10.9 fL (7.4-10.4); NEUT % 69.4 %; PLATELET COUNT 296 K/uL (130-400); RED BLOOD COUNT 4.78 M/uL (4.7-6.1); WHITE BLOOD COUNT 7.93 K/uL (4.8-10.8)
[2016-12-29 13:34] LABS: CALCIUM 9.2 mg/dl (8.5-10.1)
[2016-12-29 13:36] LABS: ALT/SGPT 26 U/L (12-78); AST/SGOT 17 U/L (15-37); BLOOD UREA NITROGEN 12 mg/dl (7-18); BUN/CREATININE RATIO 12.8 (10-20); CARBON DIOXIDE 26 mmol/L (21-32); CHLORIDE 106 mmol/L (98-107); CHOLESTEROL 110 mg/dl (0-200); CREATININE 0.92 mg/dl (0.60-1.40); GLUCOSE 88 mg/dl (70-99); POTASSIUM 4.3 mmol/L (3.5-5.1); SODIUM 140 mmol/L (136-145); TRIGLYCERIDES 93 mg/dl (0-150); VERY LOW DENSITY LIPOPROT CALC 19 mg/dl
[2016-12-29 13:38] LABS: ALB/GLOB RATIO 1.3 (0.9-2); ALKALINE PHOSPHATASE 100 U/L (45-117); CHOLESTEROL/HDL RATIO 2.6; HDL CHOLESTEROL 42 mg/dl; LDL CHOLESTEROL CALCULATED 49 mg/dl
[2016-12-29 14:04] LABS: ESTIMATED AVERAGE GLUCOSE 134 mg/dl; HA1C FLAG Normal (Normal)
== END | disposition home or self-care (01) ==
LOC: C.LAB1850 11:54
PROVIDERS: ATTEND Physician Assistant
DX: I25.10 Atherosclerotic heart disease of native coronary artery without angina pectoris (principal)

== ENCOUNTER → 2017-09-13 | Outpatient (CLI) | payer BC ==
[2017-09-13 12:42] LABS: BASO % 0.2 %; BASO ABS # 0.01 K/uL (0-0.2); EOS % 3.6 %; EOS ABS # 0.24 K/uL (0-0.5); HEMATOCRIT 44.2 % (42-52); HEMOGLOBIN 14.9 g/dL (14.0-18.0); IG# 0.02 K/uL (0.00-0.02); LYMPH % 19.3 %; LYMPH ABS # 1.28 K/uL (1.2-3.4); MEAN CORPUSCULAR HEMOGLOBIN 31.7 pg (25-34); MEAN CORPUSCULAR HGB CONC 33.7 g/dl (32-36); MEAN PLATELET VOLUME 10.4 fL (7.4-10.4); MONO % 14.3 %; MONO ABS # 0.95 K/uL (0.11-0.59); NEUT % 62.3 %; NEUT ABS # 4.13 K/uL (1.4-6.5); PLATELET COUNT 256 K/uL (130-400); RED CELL DISTRIBUTION WIDTH CV 13.5 % (11.5-14.5); RED CELL DISTRIBUTION WIDTH SD 46.8 fL (36.4-46.3); WHITE BLOOD COUNT 6.63 K/uL (4.8-10.8)
[2017-09-13 12:52] LABS: BLOOD UREA NITROGEN 14 mg/dl (7-18); CALCIUM 9.4 mg/dl (8.5-10.1); CARBON DIOXIDE 28 mmol/L (21-32); CHOLESTEROL 115 mg/dl (0-200); CREATININE 0.96 mg/dl (0.60-1.40); GLUCOSE 87 mg/dl (70-99); POTASSIUM 4.4 mmol/L (3.5-5.1); SODIUM 138 mmol/L (136-145)
[2017-09-13 12:56] LABS: ALKALINE PHOSPHATASE 96 U/L (45-117); ALT/SGPT 31 U/L (12-78); AST/SGOT 20 U/L (15-37); LDL CHOLESTEROL CALCULATED 60 mg/dl; TOTAL PROTEIN 7.1 gm/dl (6.4-8.2)
== END | disposition home or self-care (01) ==
LOC: C.LAB1850 10:51
PROVIDERS: ATTEND Internal Medicine Cardiovascular Disease
DX: I10 Essential (primary) hypertension (principal)

== ENCOUNTER → 2018-03-15 | Outpatient (CLI) | payer BC ==
[2018-03-15 17:55] LABS: BASO % 0.2 %; BASO ABS # 0.02 K/uL (0-0.2); EOS % 1.6 %; EOS ABS # 0.16 K/uL (0-0.5); HEMATOCRIT 44.1 % (42-52); HEMOGLOBIN 14.8 g/dL (14.0-18.0); IG# 0.03 K/uL (0.00-0.02); LYMPH % 15.4 %; LYMPH ABS # 1.49 K/uL (1.2-3.4); MEAN CELL VOLUME 93.6 fL (80-100); MEAN CORPUSCULAR HEMOGLOBIN 31.4 pg (25-34); MEAN CORPUSCULAR HGB CONC 33.6 g/dl (32-36); MEAN PLATELET VOLUME 11.1 fL (7.4-10.4); MONO % 9.2 %; MONO ABS # 0.89 K/uL (0.11-0.59); NEUT % 73.3 %; NEUT ABS # 7.11 K/uL (1.4-6.5); PLATELET COUNT 258 K/uL (130-400); RED CELL DISTRIBUTION WIDTH CV 13.3 % (11.5-14.5); RED CELL DISTRIBUTION WIDTH SD 45.7 fL (36.4-46.3)
[2018-03-15 18:26] LABS: ALBUMIN 4.1 gm/dl (3.4-5.0); ALKALINE PHOSPHATASE 89 U/L (45-117); ALT/SGPT 35 U/L (12-78); AST/SGOT 29 U/L (15-37); BLOOD UREA NITROGEN 14 mg/dl (7-18); CALCIUM 9.1 mg/dl (8.5-10.1); CARBON DIOXIDE 23 mmol/L (21-32); CHOLESTEROL 105 mg/dl (0-200); CREATININE 0.99 mg/dl (0.60-1.40); GLUCOSE 84 mg/dl (70-99); LDL CHOLESTEROL CALCULATED 44 mg/dl; POTASSIUM 4.2 mmol/L (3.5-5.1); SODIUM 139 mmol/L (136-145); TOTAL PROTEIN 7.3 gm/dl (6.4-8.2)
[2018-03-16 07:05] LABS: HEMOGLOBIN A1C 6.1 % (4.5-5.6)
== END | disposition home or self-care (01) ==
LOC: C.LABMFLN 14:13
PROVIDERS: ATTEND Internal Medicine Cardiovascular Disease
DX: R73.01 Impaired fasting glucose (principal)

== ENCOUNTER 2018-07-16 05:08 | Inpatient (IN) ==
--- NOTE | 2018-07-11 09:04 | PAT Medication Instructions ---
Medication Instructions Date of Service July 11, 2018 Home Medications acetaminophen [Tylenol] 1 tab PO Q6 NEEDED aspirin [Aspir-81] 81 mg PO QAM atenolol 25 mg PO QAM atorvastatin 80 mg PO PM clopidogrel 75 mg PO QAM lisinopril 10 mg PO QAM nitroglycerin [Nitrostat] 1 tab SUBLINGUAL DIRECTED NEEDED Continue as directed nitroglycerin [Nitrostat] 1 tab SUBLINGUAL DIRECTED NEEDED ASK your prescriber and surgeon clopidogrel 75 mg PO QAM aspirin [Aspir-81] 81 mg PO QAM DO NOT take the morning of surgery lisinopril 10 mg PO QAM Take morning of surgery With a small sip of water, OTHERWISE NOTHING TO EAT OR DRINK AFTER MIDNIGHT: atenolol 25 mg PO QAM acetaminophen [Tylenol] 1 tab PO Q6 NEEDED Take evening before surgery atorvastatin 80 mg PO PM acetaminophen [Tylenol] 1 tab PO Q6 NEEDED Other Notes If you have any questions please call us at [phone] or [phone] or [phone] or [phone]
--- NOTE | 2018-07-11 12:31 | Anesthesiology Consultation ---
Date of Service July 11, 2018 Assessment & Plan (1) Encounter for pre-operative examination: Chart Review Chart Review: Acceptable Risk for Surgery and Patient seen in Pre Admission Testing Consults Requested cardiac (Dr. Chase (07/12)) Patient was seen by cardiology office (Cesario Kate PA-C) on 07/12/18 for preop cardio evaluation. Note states "Based on his functional status without limiting cardiopulmonary symptoms and normal LV systolic function. Patient is an acceptable surgical risk to proceed with surgery as scheduled. There is no need for further cardiac workup at this time. Patient was advised to take his usual doses of Atenolol 25mg and Aspirin 81mg on the morning of his procedure with sips of water. He will also remain on Plavix 75mg per Dr. Murillo. Patient is aware to hold lisinopril the morning of his procedure." Teaching & Discussion Pre-Anesthesia Teaching/Discussion Notes: Instructed NPO after midnight before surgery, except medications with 15 cc of water. Medication instructions provided according to the PAT guidelines. History Surgery Operation Date: 07/16/18 07:30 Proposed Procedures p Percutaneous Endovascular Aneurysm Repair - Eliseo Murillo MD Height/Weight Height: 6 ft Weight: 112.9 kg Allergies Allergy/AdvReac Type Severity Reaction Status Date / Time adhesive Allergy Unknown PAPER Verified 07/16/18 05:45 TAPE, RASH AND IRRITATION No Known Drug Allergies Allergy Unknown NKA Verified 07/16/18 05:45 Medications Home Medications Medication Instructions Recorded Confirmed Last Taken acetaminophen [Acetaminophen Extra 1 tab PO Q6 PRN 07/10/18 07/16/18 Unknown Strength] aspirin [Aspir-81] 81 mg PO QAM 07/10/18 07/16/18 07/16/18 03:00 atenolol 25 mg PO QAM 07/10/18 07/16/18 07/16/18 03:00 atorvastatin 80 mg PO PM 07/10/18 07/16/18 07/15/18 21:00 clopidogrel 75 mg PO QAM 07/10/18 07/16/18 07/16/18 03:00 lisinopril 10 mg PO QAM 07/10/18 07/16/18 07/15/18 08:00 nitroglycerin [Nitrostat] 1 tab SUBLINGUAL UD PRN 07/10/18 07/16/18 Unknown Active Medications Generic Name Dose Route Start Last Admin Trade Name Christianq PRN Reason Stop Dose Admin Lactated Ringer's 1,000 mls @ 15 mls/hr 07/16/18 06:00 07/16/18 06:12 Lr IV 07/17/18 05:59 15 mls/hr .Q24H VAL Administration Past Medical History Medical History AAA (abdominal aortic aneurysm) CAD (coronary artery disease) S/P CARDIAC [place] [facility] [place], AND 2010 [facility] Hyperlipidemia Hypertension Lung nodule Patient aware and has had for years. Monitored. Obesity Osteoarthritis Transient ischemic attack (TIA) 25 YEARS AGO. NO RESIDUAL EFFECT Past Surgical History Surgical History History of cardiac cath 2002, AND AGAIN IN 2010. 2 STENTS PLACED AT [facility], 1 STENT PLACED AT [facility] WITH DR. CHASE History of cataract extraction with lens replacement B/L History of surgery on extremity 2001, HX OF COMPARTMENT INJURY RIGHT LEG History of tonsillectomy History of total knee replacement B/L History of vitrectomy Past Anesthesia History No Hx of Anesthesia Complications and No Family Hx of Anesthesia Complications History of PONV No Motion Sickness Screening History of Motion Sickness: No Social History Smoking Status: Former smoker tobacco type: cigarettes Smoking cigarettes per day: HX OF 1- 1.5 PPD, QUIT 24 YEARS AGO, SMOKED TOTAL OF 10 YEARS Do You Dip or Chew Tobacco: No Hx Alcohol Use: Yes Alcohol type: beer alcohol intake frequency: holidays/special occasions only Hx Substance Use: No substance use type: does not use Exercise / Class Metabolic Activity II 4-5 Yardwork/Stairs/Walk up hill (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 Able to climb FOS. Denies CP or SOB. ) Review of Systems Patient denies chest pain, shortness of breath, dyspnea on exertion, joint pain , reflux, cough, wheezing, palpitations. Physical Exam Vital Signs Last Vital Signs Temp 37.0 C 07/16/18 05:50 Pulse 51 L 07/16/18 05:50 Resp 18 07/16/18 05:50 BP 134/88 07/16/18 05:50 Pulse Ox 97 07/16/18 05:50 BP: 122/69 P: 50 R: 14 T: 97.8 SPO2: 99% on RA Constitutional + obese ENMT Mouth: + poor dentition Thyromental Distance: > or= 3.5 Finger Breadths (3.5) Mallampati Class: II Neck normal visual inspection, trachea midline and + facial hair (mustache (advised)) ; neck extension not limited Respiratory normal respiratory effort Auscultation: lungs clear to auscultation bilaterally Cardiovascular Rate/Rhythm: regular rate and regular rhythm Heart Sounds: no murmur Vessels: no carotid bruit Neurologic moves all extremities Psychiatric Orientation: alert and oriented x 3 Testing Electrocardiogram Date: 07/11/18 Findings: + SB @ (49) and + no change from (05/29/16) Chest X-Ray Date: 07/11/18 Findings: + NAD FINDINGS: The cardiac and mediastinal contours are normal. There is no evidence of focal pulmonary consolidation. There is no evidence of failure. No pleural effusions are visualized. IMPRESSION: No active disease in the chest. Stress Test Date: 04/23/15 Type: DSE Negative dobutamine stress echo and ECG for myocardial ischemia at 82% MPHR. No ECG changes. No dobutamine induced chest pain. The patient had normal BP response to dobutamine infusion. The baseline echocardiogram notes normal left ventricular function. There is no significant valvular pathology. Cardiac Catheterization Date: 11/03/10 Intervention: + LEONILA placed (mid LAD) Severe early mid LAD stenosis. Possible ulcerated plaque at this site. QUYNH II flow in the LAD on guiding angiography. Successful intervention to the early mid LAD stenosis with deployment of a LEONILA. Mild to moderate atherosclerotic disease of the left circumflex coronary artery in its marginal branch. Moderate to severe mid-RCA stenosis. The RCA was a nondominant vessel. Collateral flow from the right coronary artery to the apical LAD. Normal left ventricular systolic function. Other Testing CT angio abd aorta runoff w/ contrast 07/05/18 IMPRESSION: 1. Fusiform aneurysm of the infrarenal abdominal aorta measuring up to 5.9 cm. No evidence of impending rupture. 2. Nodular infiltrates in the right middle lobe concerning for an infectious or inflammatory process. This should be followed to resolution to ensure the absence of an underlying neoplastic nodule. Carotid Duplex 07/01/18: Interpretation: 1. <50% stenosis in the internal carotid arteries bilaterally. 2. Antegrade flow in both vertebral arteries. 3. No previous exam for comparison. Aorto-Iliac Arterial Duplex Evaluation 07/01/18: Interpretation: 1. 30-49% stenosis in the Ao-iliac system; moderate, calcific, diffuse plaque in the Ao-iliac system. 2. There is a fusiform, 5.8 cm AAA in the infrarenal portion, no grossly visible mural thrombus. Laboratory Results 07/16/18 05:55 Blood Type O Positive 07/11/18 12:50 Antibody Screen NEGATIVE 07/11/18 12:50 PT 10.5 Seconds (9.0-12.0) 07/11/18 12:50 INR 1.0 (0.9-1.1) 07/11/18 12:50 APTT 29.5 Seconds (21.0-31.0) 07/11/18 12:50 Laboratory Tests 03/15/18 07/05/18 14:16 13:40 Sodium 139 Potassium 3.9 Chloride 107 Carbon Dioxide 25 BUN 11 Creatinine 0.92 Glucose 85 Hemoglobin A1c 6.1 H
--- NOTE | 2018-07-11 13:13 | XRay Report ---
XR chest Pre-admission PA/Lat CLINICAL HISTORY: Preoperative chest COMPARISON STUDY: 05/29/2016 FINDINGS: The cardiac and mediastinal contours are normal. There is no evidence of focal pulmonary co nsolidation. There is no evidence of failure. No pleural effusions are visualized.[ IMPRESSION: No active disease in the chest. Electronically signed by: Miah Meade M.D. 07/11/2018 1:12 PM
[2018-07-11 13:21] LABS: Partial Thromboplastin Ratio 1.1; Partial Thromboplastin Time 29.5 Seconds (21.0-31.0); Prothrombin Time 10.5 Seconds (9.0-12.0)
--- NOTE | 2018-07-16 05:45 | History & Physical Report ---
Date of Service July 16, 2018 History of Present Illness Chief Complaint: AAA Primary Care Provider: Johan Davidson MD July 08, 2018 Name: ELVIS ALFORD [facility] Number: [id number] : 1955 Date of Service: 07/08/2018 Ferdinand Chase MD [address] [place] [id number] Chase: We had the pleasure of seeing Mr. Elvis Alford here today in the [facility] for evaluation of his abdominal aortic aneurysm. As you recall, he is a very pleasant 62-year-old male who recently underwent a routine carotid ultrasound and an abdominal ultrasound to screen for abdominal aortic aneurysm and assess for any significant underlying carotid artery disease. This ultrasound was performed on July 01 and demonstrated a large abdominal aortic aneurysm measuring greater than 5.5 cm. He subsequently underwent a CTA of the abdomen and pelvis on 07/05/2018 which demonstrated a 5.9 cm abdominal aortic aneurysm, infrarenal, with a 3.3 cm neck. No evidence of popliteal or femoral artery aneurysm. On discussion with the patient, he is asymptomatic with regard to his aneurysm. Denies any abdominal pain, claudication in legs. Denies knowing about the aneurysm prior to this recent ultrasound. Denies any family history of abdominal aortic aneurysms. Overall, he has no complaints during our visit today. REVIEW OF SYSTEMS: A full 12-point review of systems was performed and negative unless specified above. PAST MEDICAL HISTORY: Significant for coronary artery disease (status post stents x3), hypertension, hyperlipidemia. PAST SURGICAL HISTORY: PCI (LAD stenting in 2002), bilateral knee replacements , cataract surgery, fasciotomy of right calf following trauma. ALLERGIES: None. FAMILY HISTORY: Denies any family history of bleeding disorders or problems with anesthetics. Denies any family history of sudden or abdominal aortic aneurysms. SOCIAL HISTORY: The patient is a former smoker who quit approximately 22 years ago. Smoked about 1.5 packs per day for approximately 15 years. The patient works doing manual labor. Denies any alcohol or illicit drug use. MEDICATIONS: Significant for Plavix 75 mg, atenolol, lisinopril, aspirin, atorvastatin. Aortoiliac duplex and CTA of abdomen and pelvis were reviewed. EXAMINATION: Vital signs prior to examination are as follows: Blood pressure 138/80, heart rate 58, sat 98% on room air. Pain 0/10. In general, the patient is a well-developed and well-nourished male, in no acute distress, sitting comfortably on examination table. Head is normocephalic and atraumatic. Mucous membranes are moist. Neck is supple, and trachea is midline. No carotid bruits are appreciated. Pupils are equal, round, and reactive. Heart rate is regular with regular rhythm. Breathing is spontaneous and nonlabored with symmetrical chest rise. Breath sounds are clear to auscultation bilaterally. Abdomen: Soft, nontender, nondistended. Abdominal aortic aneurysm is appreciated on palpation; however, is nontender. Femoral and radial and pedal pulses are 2+ bilaterally. There are scars present over bilateral knees and right medial and lateral calf. There is spontaneous movement of all 4 extremities. Gross motor and sensation are intact bilaterally. The patient is alert and oriented x3. ASSESSMENT AND PLAN: Elvis Alford is a very pleasant 62-year-old male with a newly diagnosed 5.9 cm asymptomatic infrarenal abdominal aortic aneurysm. The patient's imaging and past medical history make him amenable to endovascular repair, which we will schedule at the patient's earliest convenience, likely within the next week. The risks and benefits of the procedure, both open and endovascular, were discussed with the patient and he elected to proceed with endovascular repair. All questions were answered prior to departure. I saw and evaluated the patient. Discussed with the resident and agree with the resident's findings and plan as documented in the resident's note. Signature Line Electronic Signature on File CC: Ferdinand Chase MD [address] [place] [id number] * CC: Johan Davidson MD [address] [place] [id number] * Brad Roque MD Resident Division of General Surgery Electronically Reviewed/Signed by: Ekaterina Horton Signature Dt/Tm : 07/11/2018 09:33 AM Tug Master Hector Quintana [facility], [address] [place] [address] HERN[place]N /CO Result Type: .Outpt Ltr Date of Service: July 08, 2018 00:00 EST Authorization Status: Final Author or Import Date: MD Roque Ashton J on July 08, 2018 16:30 EST Verified By: MD Lidia, Eliseo Morgan on July 11, 2018 09:33 EST Encounter info: [id number], [facility], Clinic, 07/08/2018 - 07/08/2018 Contributor system: [id number] Allergies Allergy/AdvReac Type Severity Reaction Status Date / Time adhesive Allergy Unknown PAPER Verified 07/16/18 05:45 TAPE, RASH AND IRRITATION No Known Drug Allergies Allergy Unknown NKA Verified 07/16/18 05:45 Home Medications Home Medications Medication Instructions Recorded Confirmed Type acetaminophen [Acetaminophen Extra 1 tab PO Q6 PRN 07/10/18 07/10/18 History Strength] aspirin [Aspir-81] 81 mg PO QAM 07/10/18 07/10/18 History atenolol 25 mg PO QAM 07/10/18 07/10/18 History atorvastatin 80 mg PO PM 07/10/18 07/10/18 History clopidogrel 75 mg PO QAM 07/10/18 07/10/18 History lisinopril 10 mg PO QAM 07/10/18 07/10/18 History nitroglycerin [Nitrostat] 1 tab SUBLINGUAL UD PRN 07/10/18 07/10/18 History Past Med/Surg History Medical History AAA (abdominal aortic aneurysm) CAD (coronary artery disease) S/P CARDIAC CATH IN 2002 [facility], AND 2010 [facility] Hyperlipidemia Hypertension Lung nodule Patient aware and has had for years. Monitored. Obesity Osteoarthritis Transient ischemic attack (TIA) 25 YEARS AGO. NO RESIDUAL EFFECT Surgical History History of cardiac cath 2002, AND AGAIN IN 2010. 2 STENTS PLACED AT [facility], 1 STENT PLACED AT [facility] WITH DR. CHASE History of cataract extraction with lens replacement B/L History of surgery on extremity 2001, HX OF COMPARTMENT INJURY RIGHT LEG History of tonsillectomy History of total knee replacement B/L History of vitrectomy Social History Current Living Situation: Spouse Other Information That Helps Us Care for You: No Feels Safe at Home: Yes Safety Concerns: Feels Safe At This Time Smoking Status: Former smoker Tobacco Type: cigarettes Cigarettes per Day: HX OF 1- 1.5 PPD, QUIT 24 YEARS AGO, SMOKED TOTAL OF 10 YEARS Do You Dip or Chew Tobacco: No Hx Alcohol Use: Yes Alcohol type: beer Alcohol Intake Frequency: holidays/ special occasions only Hx Substance Use: No Beliefs That Will Affect Care: None Preferred Language: Spanish Communication Ability: Effective Compliance Counsel Required: No
[2018-07-16] MEDS ORDERED: LR 15ML/HR IV SCH (06:00)
[2018-07-16] MEDS ORDERED: CEFAZOLIN 2000MG 2,000 MG/15 ML SYR IV SCH (06:00)
[2018-07-16] MEDS ORDERED: LR IV SCH (06:00)
[2018-07-16 06:03] LABS: Hematocrit (blood only) 40.8 % (42-52); Hemoglobin 13.8 g/dL (14.0-18.0); Mean Corpuscular Volume 95.6 fL (80-100); Mean Platelet Volume 10.3 fL (7.4-10.4); Platelet Count 260 K/uL (130-400); RDW Coefficient of Variation 13.8 % (11.5-14.5); RDW Standard Deviation 48.1 fL (36.4-46.3); Red Blood Count 4.27 M/uL (4.7-6.1); White Blood Count 7.85 K/uL (4.8-10.8)
[2018-07-16 06:05] LABS: Mean Corpuscular Hgb Conc 33.8 g/dL (32-36)
[2018-07-16] MEDS ORDERED: fentaNYL citrate 100 MCG/2 ML VIAL ONE ×6 (06:43→10:04)
[2018-07-16] MEDS ORDERED: MIDAZOLAM HCL 1 MG/ML 2ML VIAL ONE ×2 (06:43→07:52)
[2018-07-16] MEDS ORDERED: GELATIN SPONGE SZ 100 ONE (07:09)
[2018-07-16] MEDS ORDERED: LIDOCAINE 2% JELLY 5 ML TUBE ONE (07:09)
[2018-07-16] MEDS ORDERED: CEFAZOLIN 250 MG/ML 1 GM VIAL ONE (07:09)
[2018-07-16] MEDS ORDERED: THROMBIN FOR SOLN 20000 UNIT KIT ONE (07:10)
[2018-07-16] MEDS ORDERED: HEPARIN SOD (PORCINE) 5,000 UNITS/ML VIAL ONE (07:12)
[2018-07-16] MEDS ORDERED: HEPARIN (PORCINE) 1000 UNIT/ML 10 ML (CATH LAB USE ONLY) ONE (07:13)
--- NOTE | 2018-07-16 07:15 | History & Physical Bridge Note ---
Date of Service July 16, 2018 History & Physical Bridge Note I have examined the patient, reviewed the History & Physical and in the interval since the performance of the History & Physical I have noted the following changes of clinical significance: no changes noted
[2018-07-16] MEDS ORDERED: LIDOCAINE/EPINEPHRINE 1% INJ 50 ML VIAL ONE (07:21)
[2018-07-16] MEDS ORDERED: HYDROmorphone INJ 0.5 MG/0.5 ML SYR IV PRN (07:57)
[2018-07-16] MEDS ORDERED: fentaNYL citrate 100 MCG/2 ML VIAL IV PRN (07:57)
[2018-07-16] MEDS ORDERED: PHENYLEPHRINE 100MCG/ML 5ML SYR IV PRN (07:57)
[2018-07-16] MEDS ORDERED: ONDANSETRON INJ 2 MG/ML 2 ML VIAL IV PRN (07:57)
[2018-07-16] MEDS ORDERED: MEPERIDINE HCL 25 MG/ML CARP IV PRN (07:57)
[2018-07-16] MEDS ORDERED: ePHEDrine sulfate 50 MG/ML AMP IV PRN (07:57)
[2018-07-16] MEDS ORDERED: LABETALOL HCL IV 5 MG/ML 20ML IV PRN (07:57)
[2018-07-16] MEDS ORDERED: ATROPINE SULFATE 0.1 MG/ML 5ML SYR IV PRN (07:57)
[2018-07-16] MEDS ORDERED: HYDROmorphone INJ 2 MG/ML SYR/VIAL ONE (08:41)
[2018-07-16] MEDS ORDERED: NITROGLYCERIN/D5W 100 MCG/ML BTL ONE (08:42)
[2018-07-16] MEDS ORDERED: NEOSTIGMINE METHYLSULFATE 5 MG/5 ML SYR ONE (08:42)
[2018-07-16] MEDS ORDERED: GLYCOPYRROLATE 0.2 MG/ML VIAL ONE (08:42)
[2018-07-16] MEDS ORDERED: ONDANSETRON INJ 2 MG/ML 2 ML VIAL ONE (08:42)
[2018-07-16] MEDS ORDERED: LIDOCAINE HCL 2% 2 ML VIAL/AMP(20MG/ML) INFIL ONE (08:42)
[2018-07-16] MEDS ORDERED: PROPOFOL IV EMULSION 10 MG/ML 20 ML VIAL IV ONE (08:42)
[2018-07-16] MEDS ORDERED: HEPARIN SOD (PORCINE) 1000 UNIT/ML 10 ML VIAL ONE (08:42)
[2018-07-16] MEDS ORDERED: DEXAMETHASONE SOD INJ 4 MG/ML VIAL ONE (08:42)
[2018-07-16] MEDS ORDERED: ePHEDrine sulfate 50 MG/ML AMP ONE ×2 (08:44→09:37)
[2018-07-16] MEDS ORDERED: ePHEDrine sulfate 50 MG/ML SYR ONE (08:44)
[2018-07-16] MEDS ORDERED: ROCURONIUM BROMIDE 10 MG/ML 5 ML VIAL ONE (09:39)
[2018-07-16] MEDS ORDERED: ARISTA ABSORBABLE HEMOSTAT 3GM TOP ONE (09:54)
[2018-07-16] MEDS ORDERED: HydrALAZINE HCL 20 MG/ML VIAL ONE (10:03)
[2018-07-16] MEDS ORDERED: LABETALOL HCL IV 5 MG/ML 20ML IV ONE (10:03)
--- NOTE | 2018-07-16 10:07 | Post Operative Brief Note ---
Immediate Post Op Note v1 Date of Surgery July 16, 2018 Pre & Post Diagnosis Operation Date: 07/16/18 07:30 Pre-Op Diagnosis: Abdominal Aortic Aneurysm Post-Op Diagnosis: Abdominal Aortic Aneurysm Procedure Operation Date: 07/16/18 07:30 Actual Procedures p Percutaneous Endovascular Aneurysm Repair, Percutaneous Closure Bilateral Femoral Arteries(Bilateral) - Eliseo Murillo MD Surgeon Eliseo Murillo MD Part Time Receptionist Brad Roque MD Estimated Blood Loss 50 Findings Consistent with Post-Op Diagnosis Drains Simpson Catheter (16 swiss simpson catheter inserted without difficulty with clear yellow urine return by Zamzam Lyman RN) Anesthesia Type General Complications none Disposition Accompanied Patient To Recovery: No Disposition: Recovery Room
[2018-07-16] MEDS ORDERED: OXYCODONE/ACETAMINOPHEN 5mg/325mg TAB PO PRN (10:08)
[2018-07-16] MEDS ORDERED: ACETAMINOPHEN 325 MG TAB PO PRN (10:08)
[2018-07-16] MEDS ORDERED: MoRPHine SULFATE 2 MG/ML CARP IV PRN (10:08)
[2018-07-16] MEDS ORDERED: VISIPAQUE IV PRN (10:09)
[2018-07-16] MEDS ORDERED: ACETAMINOPHEN 500 MG TAB PO PRN (10:13)
[2018-07-16] MEDS ORDERED: NITROGLYCERIN SL 0.4 MG/TAB TAB SL PRN (10:13)
--- NOTE | 2018-07-16 10:18 | Procedure Note ---
Procedure Note Date of Service DATE OF OPERATION: July 16, 2018 PREOPERATIVE DIAGNOSIS: Abdominal aortic aneurysm. POSTOPERATIVE DIAGNOSIS: Abdominal aortic aneurysm. OPERATION: Percutaneous endovascular aortic aneurysm repair, percutaneous closure of the bilateral femoral arteries. SURGEON: Eliseo Murillo MD RADAR SCIENTIST: Brad Roque MD ESTIMATED BLOOD LOSS: 50 mL. FINDINGS: Consistent with postoperative diagnosis. DRAINS: Cornelius catheter. ANESTHESIA TYPE: GETA. COMPLICATIONS: None. INDICATIONS FOR PROCEDURE: Gonzalo Gupta is a very pleasant 62-year-old male with a newly diagnosed 5.9 cm asymptomatic infrarenal abdominal aortic aneurysm. The patient's imaging and past medical history make him amenable to endovascular repair. The risks and benefits of the procedure, both open and endovascular, were discussed with the patient and he elected to proceed with endovascular repair. DESCRIPTION OF PROCEDURE: The patient was brought to the operating room and positioned in the supine position. General endotracheal anesthesia was induced. A surgical safety timeout was performed confirming the correct patient and procedure. The patient's bilateral groins and abdomen were prepped and draped in the usual sterile fashion. Prior to the start of the operating room, the patient had dopplerable right posterior tibial, left posterior tibial signals. An 18 gauge needle was used to obtain access to the right femoral artery and Seldinger technique was used to place a 5-Kazakh sheath over a wire into the right femoral artery. This was confirmed with fluoroscopy. We then using hand injection contrast and fluoroscopy obtained images of the right femoral artery and placed two percutaneous closure devices in the right groin. Again, using Seldinger technique, an 8-Kazakh sheath was inserted into the right femoral artery. We then turned our attention to the left groin. An 18 gauge needle was used to access the left femoral artery, and over a wire, a 5-Kazakh sheath was placed into the left femoral artery. Once again hand injection of contrast was used to obtain fluoroscopic images of the left femoral artery. We then placed percutaneous closure devices into the left groin. Due to maldeployment of a percutaneous closure device and the left groin was accessed twice with the needle and wire. .035 glide wires were passed into the suprarenal aorta from both groins. A kumpke catheter was then inserted and the Glidewire exchanged for a Meijer wire on both sides. After dilating the right femoral artery with a 12 and 16 Fr dilator we then placed an 18 Kazakh DrySeal sheath into the right groin. A DrySeal 12-Kazakh sheath was placed into the left groin over a wire. A pigtail was inserted up the left groin. Aortography was performed to danilo the renal arteries. We then deployed a 28.5 x 14.5 x 12 cm trunk and power injection contrast were used to obtain images of the aorta. The device was then deployed below the renal arteries. Using a combination of Kumpe and Sheparmartina hook catheters and a Glidewire, the gate was cannulated. Pigtail was then inserted measurements were done between the gate and the internal iliac on the left side. In the Contraleg, we then placed an 16 mm x 13.5 cm Contralateral limb. We then deployed a distal extension in the right common iliac artery (Ipsi limb). This was a 16 x 9.5 cm iliac extension, deployed after marking the internal iliac on the right side from a hand-injection. A Q50 balloon was used to balloon dilate and expand the attachments and overlapped areas. The stent graft device appeared then to be in good position without any evidence of endoleak. The bilateral groins were closed, after removal of the catheter and sheath, with the perclose device that was deployed at the beginning of the case. There appeared to be good hemostasis and the groin appeared soft with no signs of hematoma. Eli powder was then used on bilateral groin access sites. The patient appeared to tolerate the procedure well. He was awoken from anesthesia and transported to the recovery room in stable condition. At the end of the procedure, the patient had dopplerable right posterior tibial, left posterior tibial signals bilaterally. Dr. Murillo was present for the entirety of the case. There were no apparent complications.
[2018-07-16] MEDS ORDERED: ESMOLOL HCL INJ 10 MG/ML 10ML VIAL IV ONE (10:31)
[2018-07-16 10:54] LABS: Hematocrit (blood only) 38.6 % (42-52); Hemoglobin 12.7 g/dL (14.0-18.0)
--- NOTE | 2018-07-16 11:08 | XRay Report ---
XR chest 1V portable CLINICAL HISTORY: Chest tightness. COMPARISON STUDY: Chest radiograph July 11, 2018. FINDINGS: Lung volumes are normal. There is no pneumothorax or pleural effusion. There is borderline cardiomegaly. Pulmonary vascularity is normal. Minimal bibasilar opacities favor atelectasis. IMPRESSION: No acute cardiopulmonary findings. Electronically signed by: Sonny Gerardo M.D. 07/16/2018 11:07 AM
--- NOTE | 2018-07-16 11:46 | Anesthesiology Progress Note ---
Date of Service July 16, 2018 Anesthesia Post Procedure Vital Signs Vital Signs: Temp Pulse Pulse Resp BP BP Pulse Ox 07/16/18 11:25 36.2 C L 85 17 121/66 95 07/16/18 11:15 36.1 C L 87 22 144/67 H 146/74 H 97 07/16/18 11:05 86 14 146/74 H 96 07/16/18 10:55 91 H 14 147/72 H 97 07/16/18 10:45 88 15 136/74 99 07/16/18 10:35 83 13 139/68 98 07/16/18 10:25 36.4 C L 87 16 150/77 H 98 07/16/18 05:50 37.0 C 51 L 18 133/80 134/88 97 Notes Mental Status: alert / awake / arousable Patient Amnestic to Procedure: Yes Nausea / Vomiting: adequately controlled Pain: adequately controlled Airway Patency, RR, SpO2: stable & adequate BP & HR: stable & adequate Hydration State: stable & adequate Anesthetic Complications: no major complications apparent and Pt Satisfied with anesthetic care Notes: The patient did well with the procedure. He was stable throughout. In recovery the patient was awake and doing well although complained of some chest tightness. The patient stated that lying flat causes him to have chest tightness. A CXR was performed that showed NAD. An EKG was similar to a preoperative one. I spoke with Dr. Whitmore who recommended to give the patient an oral antacid and to place him in reverse Trendelenberg position becuase he suspects GERD to be the cause. I also spoke to Dr. Peacock who will follow the patient in the ICU. Dr. Murillo was made aware as well.
[2018-07-16] MEDS ORDERED: ALUMINUM/MAGNESIUM SUSP 30 ML UDC PO ONE (12:00)
[2018-07-16] MEDS ORDERED: MoRPHine SULFATE 4 MG/ML 1 ML CARP\\VIAL IV PRN (12:14)
[2018-07-16] MEDS ORDERED: METOPROLOL TARTRATE 1 MG/ML VIAL IV ONE (12:27)
[2018-07-16] MEDS: D5W AND 1/2NSS 1,000 ML IV SCH ×2 (12:32→20:13)
[2018-07-16] MEDS: CEFAZOLIN 2000MG 2,000 MG/15 ML SYR IV SCH ×2 (16:00→23:34)
[2018-07-16] MEDS ORDERED: ATORVASTATIN 40 MG TAB PO SCH (21:00)
--- NOTE | 2018-07-16 21:39 | Critical Care Consultation ---
Date of Consultation July 16, 2018 Assessment & Plan (1) Admitted to intensive care unit: Reason Critically Ill: 62-year-old male status post endovascular abdominal aortic aneurysm repair. NEURO - * CAM ICU: NEGATIVE * Postoperative Pain: Tylenol. Will add narcotics if needed. CARDIAC/VASCULAR - * s/p Endovascular AAA Repair: * Will monitor for s/s bleeding in the postoperative vascular patient. * Continue w/ home Rx for HTN/CAD as tolerated. * EKG (05/16): NSR 85bpm. No ST/T-wave changes. QTc 471ms * Monitor on telemetry. RESPIRATORY - * No h/o Pulmonary disease. * Will monitor. GI/NUTRITION - * NPO at this time. * Progress to Heart Healthy diet as tolerated in AM. RENAL/LYTES - * No significant electrolyte derangements. * Will monitor - replace appropriately. * IVF: D5W & 1/2NSS @ 125/hr. - * Cornelius in place - Strict I&Os. ENDO - * No h/o DM or thyroid Dz. * BSGs per unit protocol. ISS --> gtt per unit policy. HEME - * Stable H&H: * EBL 50mL * Will trend - transfuse if needed. ID - * No c/o infectious processes at this time. LINES/IV ACCESS - * PIVs x2 * Cornelius DVT PROPHYLAXIS - * Will defer to vascular surgery in the postoperative patient. * SCDs I have personally spent 35 minutes of critical care time in the direct management of this patient. This is a life/limb threatening event. This includes time spent evaluating patient, direct bedside care, chart review, placing orders, interpretation of diagnostic studies, discussion with consultants, patient, and family members, as well as other required patient management activities. This time is exclusive of all separately billable procedures, and teaching time and separate from and in addition to any other critical care service time. Thank you for allowing us to participate in the care of this patient. Please refer to my attending physician's documentation for any further recommendations. (2) S/P AAA repair: (3) Hypertension: (4) Heart disease: Supervising Physician Co-Signing Physician Notes I have personally evaluated and examined this patient. I agree with assessment and plan of Lilian Vásquez PA-C. Patient tolerating diet no significant complaint of pain. History of Present Illness Attending Physician: Eliseo Murillo MD Patient is a 62-year-old male postop day #0 status post percutaneous endovascular aortic aneurysm repair with percutaneous closure of the bilateral femoral arteries. Patient had a reportedly uneventful procedure with estimated blood loss of 50 mL's. Postoperatively, the patient did have some slight bleeding from a superficial groin vessel which was easily stopped by vascular surgery team. Otherwise, patient offers no complaints at this time. On evaluation in the ICU, the patient is awake, alert, and oriented. He complains of some pain in his neck from laying in bed all evening. Otherwise, he denies any headaches, dizziness, chest pain, palpitations, shortness of breath, abdominal pain, nausea, vomiting, abdominal pain. He denies any numbness or weakness into the extremities. Allergies Allergy/AdvReac Type Severity Reaction Status Date / Time adhesive Allergy Unknown PAPER Verified 07/16/18 05:45 TAPE, RASH AND IRRITATION No Known Drug Allergies Allergy Unknown NKA Verified 07/16/18 05:45 Home Medications Home Medications Medication Instructions Recorded Confirmed Type acetaminophen [Acetaminophen Extra 1 tab PO Q6 PRN 07/10/18 07/16/18 History Strength] aspirin [Aspir-81] 81 mg PO QAM 07/10/18 07/16/18 History atenolol 25 mg PO QAM 07/10/18 07/16/18 History atorvastatin 80 mg PO PM 07/10/18 07/16/18 History clopidogrel 75 mg PO QAM 07/10/18 07/16/18 History lisinopril 10 mg PO QAM 07/10/18 07/16/18 History nitroglycerin [Nitrostat] 1 tab SUBLINGUAL UD PRN 07/10/18 07/16/18 History Patient History Medical History AAA (abdominal aortic aneurysm) CAD (coronary artery disease) S/[place] [facility] [facility] Hyperlipidemia Hypertension Lung nodule Patient aware and has had for years. Monitored. Obesity Osteoarthritis Transient ischemic attack (TIA) 25 YEARS AGO. NO RESIDUAL EFFECT Surgical History History of cardiac cath 2002, AND AGAIN IN 2010. [address] [facility], 1 STENT PLACED AT [facility] WITH DR. CHASE History of cataract extraction with lens replacement B/L History of surgery on extremity 2001, HX OF COMPARTMENT INJURY RIGHT LEG History of tonsillectomy History of total knee replacement B/L History of vitrectomy Social History Current Living Situation: Spouse Other Information That Helps Us Care for You: No Feels Safe at Home: Yes Safety Concerns: Feels Safe At This Time Smoking Status: Former smoker Tobacco Type: cigarettes Cigarettes per Day: HX OF 1- 1.5 PPD, QUIT 24 YEARS AGO, SMOKED TOTAL OF 10 YEARS Do You Dip or Chew Tobacco: No Hx Alcohol Use: Yes Alcohol type: beer Alcohol Intake Frequency: holidays/ special occasions only Hx Substance Use: No Beliefs That Will Affect Care: None Preferred Language: Kiswahili Communication Ability: Effective Review of Systems A complete 10 point review of systems was reviewed with the patient with pertinent positives and negatives as per history of present illness. All else were negative. Physical Exam 2 Vital Signs (Past 24 Hours): Last Vital Signs Temp 36.4 C L 07/16/18 20:00 Pulse 79 07/16/18 21:00 Resp 17 07/16/18 21:00 BP 145/49 H 07/16/18 21:00 Pulse Ox 94 07/16/18 21:00 Physical Exam: VITAL SIGNS - Vital signs and nursing notes were reviewed. GENERAL - 62-year-old male appearing his stated age who is in no acute distress. Communicates well with provider and answers questions appropriately. HEAD - NC/AT. EYES - PERRL with EOMI bilaterally. Sclera anicteric. Palpebral conjunctiva pink and moist with no injection noted. EARS - No deformities of external structures noted on gross examination bilaterally. NOSE - Midline and without cyanosis. MOUTH/OROPHARYNX - Without perioral cyanosis. NECK - Neck with FROM. LUNGS - Chest wall symmetric without accessory muscle use, intercostals retractions, or central cyanosis. Normal vesicular breath sounds CTA B/L. No wheezes, rales, or rhonchi appreciated. CARDIAC - RRR with S1/S2. No murmur, rubs, or gallops appreciated. No reproducible tenderness to palpation appreciated over the anterior chest wall. ABDOMEN - Abdominal contour obese without pulsations or visible masses. BS normoactive all four quadrants. No tenderness, palpable masses, hepatosplenomegaly, or ascites noted. EXTREMITIES - No clubbing or peripheral cyanosis. No pretibial edema present. +3 /5 radial with dopplerable dorsalis pedis pulses bilaterally. +5/5 strength noted in UE/LE bilaterally. NEUROLOGIC - Cranial nerves II through XII grossly intact. Sensory intact to light touch throughout. PSYCH - A&Ox3 and cooperates fully with examiner. Pt is very pleasant and interacts well with examiner.
[2018-07-17] MEDS ORDERED: ONDANSETRON INJ 2 MG/ML 2 ML VIAL IV PRN (02:14)
[2018-07-17] MEDS: D5W AND 1/2NSS 1,000 ML IV SCH (03:40)
[2018-07-17 05:21] LABS: BUN Creatinine Ratio 14.6 (10-20); Calcium 8.4 mg/dl (8.5-10.1); Est GFR (African American) 109.4; Est GFR (Non-African American) 94.4; Potassium 4.1 mmol/L (3.5-5.1)
[2018-07-17 05:25] LABS: Basophils # (auto) 0.01 K/uL (0-0.2); Hematocrit (blood only) 37.8 % (42-52); Hemoglobin 12.2 g/dL (14.0-18.0); Immature Granulocytes # (auto) 0.05 K/uL (0.00-0.02); Immature Granulocytes % (auto) 0.2 %; Mean Corpuscular Hgb Conc 32.3 g/dL (32-36); Mean Corpuscular Volume 94.7 fL (80-100); Mean Platelet Volume 10.1 fL (7.4-10.4); Monocytes # (auto) 0.94 K/uL (0.11-0.59); Monocytes % (auto) 4.7 %; Neutrophils # (auto) 17.72 K/uL (1.4-6.5); Neutrophils % (auto) 88.1 %; Platelet Count 256 K/uL (130-400); RDW Coefficient of Variation 13.7 % (11.5-14.5); RDW Standard Deviation 47.3 fL (36.4-46.3); Red Blood Count 3.99 M/uL (4.7-6.1); White Blood Count 20.12 K/uL (4.8-10.8)
--- NOTE | 2018-07-17 07:29 | Surgery Progress Note ---
Date of Service July 17, 2018 Assessment & Plan (1) S/P AAA repair: This patient is doing well postop from his PEVAR of his abdominal aortic aneurysm. He will be discharged later today. Subjective Patient has no complaints. He is in a chair eating. He has no further bleeding suggested. He does have small amount of blood from his penis after Cornelius was removed. Physical Exam 2 Vital Signs (Past 24 Hours): Last Vital Signs Temp 36.3 C L 07/17/18 04:00 Pulse 69 07/17/18 06:00 Resp 17 07/17/18 06:00 BP 134/68 07/17/18 06:00 Pulse Ox 95 07/17/18 06:00 Constitutional: WD/WN, vitals as above Respiratory: normal respiratory effort; no respiratory distress Cardiovascular: Rate/Rhythm: regular rate and regular rhythm Gastrointestinal (Abdomen): Percussion/Palpation: abdomen soft; abdomen nontender Skin: + incision (No evidence of hematoma or bleeding from either puncture site of the groins.) Psychiatric: A+Ox3, euthymic affect
[2018-07-17] MEDS ORDERED: ATENOLOL 25 MG TABLET PO SCH (09:00)
[2018-07-17] MEDS ORDERED: LISINOPRIL 10 MG TAB PO SCH (09:00)
[2018-07-17] MEDS ORDERED: ASPIRIN 81 MG ECTAB PO SCH (09:00)
[2018-07-17] MEDS ORDERED: CLOPIDOGREL BISULFATE 75 MG TAB PO SCH (09:00)
--- NOTE | 2018-07-17 18:54 | Critical Care Progress Note ---
Date of Service July 17, 2018 Assessment & Plan (1) S/P AAA repair: 62-year-old male POD#1 status post endovascular abdominal aortic aneurysm repair. NEURO - CAM ICU: NEGATIVE Postoperative Pain: Tylenol. Pain well controlled CARDIAC/VASCULAR - s/p Endovascular AAA Repair: Monitored for s/s bleeding in the postoperative vascular patient. After initial post-op bleeding controlled by vascular team on POD #0, no other bleeding noted Continue w/ home Rx for HTN/CAD as tolerated. EKG (05/16): NSR 85bpm. No ST/T-wave changes. QTc 471ms RESPIRATORY - No h/o Pulmonary disease. No issues noted in ICU. GI/NUTRITION - Tolerating Heart Healthy diet. RENAL/LYTES - No significant electrolyte derangements. DCd IVF after diet commenced. - Simpson removed today ENDO - No h/o DM or thyroid Dz. BSGs per unit protocol. ISS --> gtt per unit policy. HEME - Stable H&H EBL 50mL ID - No c/o infectious processes at this time. LINES/IV ACCESS - PIVs x2 DVT PROPHYLAXIS - SCDs DISPO: Per vascular surgery team, patient is ready for discharge home. Intensive care team in agreement. Follow up per surgical team. (2) Heart disease: (3) Admitted to intensive care unit: Supervising Physician Co-Signing Physician Notes Dr. Garcia was resident physician during care of patient. I separately evaluated patient for newberry portions of the history and the exam. I was present during the critical portion of medical decision making, and I discussed the case with the resident. I generally agree with the findings and plan. Subjective Review of Systems All systems reviewed & are unremarkable except as noted in HPI & below Constitutional: no fever and no chills Respiratory: no cough and no dyspnea Cardiovascular: no chest pain Gastrointestinal: no abdominal pain, no nausea and no vomiting Minimal hematuria s/p simpson removal Integumentary: no rash Physical Exam 2 Vital Signs (Past 24 Hours): Last Vital Signs Temp 36.6 C 07/17/18 08:23 Pulse 71 07/17/18 08:23 Resp 16 07/17/18 08:23 BP 133/72 07/17/18 08:23 Pulse Ox 99 07/17/18 08:23 Constitutional: WD/WN, vitals as above Eyes: PERRL, conjunctivae normal, anicteric sclerae ENMT: external ear and nose normal, oropharynx normal Neck: normal visual inspection Respiratory: normal respiratory effort, lungs clear to auscultation Cardiovascular: RRR, no murmur, no edema Gastrointestinal (Abdomen): normal bowel sounds, soft, nontender, no hepatosplenomegaly Skin: no rashes, warm and dry + incision (Groin, covered, no drainage, pus , bleeding) Neurologic: PERRL, EOMI, accommodation nl, no face palsy, no dysarthria Results & Data Laboratory Results 07/17/18 07/17/18 07/17/18 Range/Units 07:19 04:39 04:35 WBC (4.8-10.8) K/uL RBC (4.7-6.1) M/uL Hgb (14.0-18.0) g/dL Hct (42-52) % MCV (80-100) fL MCH (25-34) pg MCHC (32-36) g/dL RDW Std Deviation (36.4-46.3) fL RDW Coeff of Jason (11.5-14.5) % Plt Count (130-400) K/uL MPV (7.4-10.4) fL Immature Gran % (Auto) % Neut % (Auto) % Lymph % (Auto) % Phillips % (Auto) % Eos % (Auto) % Baso % (Auto) % Immature Gran # (Auto) (0.00-0.02) K/uL Neut # (Auto) (1.4-6.5) K/uL Lymph # (Auto) (1.2-3.4) K/uL Phillips # (Auto) (0.11-0.59) K/uL Eos # (Auto) (0-0.5) K/uL Baso # (Auto) (0-0.2) K/uL Sodium 138 (136-145) mmol/L Potassium 4.1 (3.5-5.1) mmol/L Chloride 106 (98-107) mmol/L Carbon Dioxide 25 (21-32) mmol/L Anion Gap 7.0 (3-11) BUN 12 (7-18) mg/dl Creatinine 0.80 (0.6-1.4) mg/dl Est Cr Clr Drug Dosing 121.0 ml/min Est GFR ( Amer) 109.4 Est GFR (Non-Af Amer) 94.4 BUN/Creatinine Ratio 14.6 (10-20) Glucose 155 H (70-99) mg/dl POC Glucose 139 H 159 H (70-99) Calcium 8.4 L (8.5-10.1) mg/dl Crossmatch 07/17/18 07/16/18 07/16/18 Range/Units 04:35 20:15 05:55 WBC 20.12 H D (4.8-10.8) K/uL RBC 3.99 L (4.7-6.1) M/uL Hgb 12.2 L (14.0-18.0) g/dL Hct 37.8 L (42-52) % MCV 94.7 (80-100) fL MCH 30.6 (25-34) pg MCHC 32.3 (32-36) g/dL RDW Std Deviation 47.3 H (36.4-46.3) fL RDW Coeff of Jason 13.7 (11.5-14.5) % Plt Count 256 (130-400) K/uL MPV 10.1 (7.4-10.4) fL Immature Gran % (Auto) 0.2 % Neut % (Auto) 88.1 % Lymph % (Auto) 7.0 % Phillips % (Auto) 4.7 % Eos % (Auto) 0.0 % Baso % (Auto) 0.0 % Immature Gran # (Auto) 0.05 H (0.00-0.02) K/uL Neut # (Auto) 17.72 H (1.4-6.5) K/uL Lymph # (Auto) 1.40 (1.2-3.4) K/uL Phillips # (Auto) 0.94 H (0.11-0.59) K/uL Eos # (Auto) 0.00 (0-0.5) K/uL Baso # (Auto) 0.01 (0-0.2) K/uL Sodium (136-145) mmol/L Potassium (3.5-5.1) mmol/L Chloride (98-107) mmol/L Carbon Dioxide (21-32) mmol/L Anion Gap (3-11) BUN (7-18) mg/dl Creatinine (0.6-1.4) mg/dl Est Cr Clr Drug Dosing ml/min Est GFR ( Amer) Est GFR (Non-Af Amer) BUN/Creatinine Ratio (10-20) Glucose (70-99) mg/dl POC Glucose 148 H (70-99) Calcium (8.5-10.1) mg/dl Crossmatch See Detail Medications Administered acetaminophen [Acetaminophen Extra Strength] 1 tab PO Q6 PRN 07/10/18 [History Confirmed 07/16/18] aspirin [Aspir-81] 81 mg PO QAM 07/10/18 [History Confirmed 07/16/18] atenolol 25 mg PO QAM 07/10/18 [History Confirmed 07/16/18] atorvastatin 80 mg PO PM 07/10/18 [History Confirmed 07/16/18] clopidogrel 75 mg PO QAM 07/10/18 [History Confirmed 07/16/18] lisinopril 10 mg PO QAM 07/10/18 [History Confirmed 07/16/18] nitroglycerin [Nitrostat] 1 tab SUBLINGUAL UD PRN 07/10/18 [History Confirmed ] oxycodone-acetaminophen [Percocet] 1 tab PO Q4H PRN #20 tab 07/17/18 [Rx] Resident Activity Tracking Resident Involvement: Resident Care Provided Care Provided: Adult Hospital Medicine
--- NOTE | 2018-07-31 09:08 | Discharge Summary ---
Date of Service July 31, 2018 Admission HPI Per Admitting Provider We had the pleasure of seeing Mr. Gonzalo Gupta here today in the Vascular Surgery Clinic for evaluation of his abdominal aortic aneurysm. As you recall, he is a very pleasant 62-year-old male who recently underwent a routine carotid ultrasound and an abdominal ultrasound to screen for abdominal aortic aneurysm and assess for any significant underlying carotid artery disease. This ultrasound was performed on July 01 and demonstrated a large abdominal aortic aneurysm measuring greater than 5.5 cm. He subsequently underwent a CTA of the abdomen and pelvis on 07/05/2018 which demonstrated a 5.9 cm abdominal aortic aneurysm, infrarenal, with a 3.3 cm neck. No evidence of popliteal or femoral artery aneurysm. On discussion with the patient, he is asymptomatic with regard to his aneurysm. Denies any abdominal pain, claudication in legs. Denies knowing about the aneurysm prior to this recent ultrasound. Denies any family history of abdominal aortic aneurysms. Overall, he has no complaints during our visit today. REVIEW OF SYSTEMS: A full 12-point review of systems was performed and negative unless specified above. Admission Exam Per Admitting Provider Vital signs prior to examination are as follows: Blood pressure 138/80, heart rate 58, sat 98% on room air. Pain 0/10. In general, the patient is a well- developed and well-nourished male, in no acute distress, sitting comfortably on examination table. Head is normocephalic and atraumatic. Mucous membranes are moist. Neck is supple, and trachea is midline. No carotid bruits are appreciated. Pupils are equal, round, and reactive. Heart rate is regular with regular rhythm. Breathing is spontaneous and nonlabored with symmetrical chest rise. Breath sounds are clear to auscultation bilaterally. Abdomen: Soft, nontender, nondistended. Abdominal aortic aneurysm is appreciated on palpation; however, is nontender. Femoral and radial and pedal pulses are 2+ bilaterally. There are scars present over bilateral knees and right medial and lateral calf. There is spontaneous movement of all 4 extremities. Gross motor and sensation are intact bilaterally. The patient is alert and oriented x3. Principal Diagnosis S/P Percutaneous Endovascular Repair of Abdominal Aortic Aneurysm Abdominal Aortic Aneurysm Discharge Exam Constitutional WD/WN, vitals as above well developed, well nourished, healthy appearing, well groomed, cooperative and comfortable; not disheveled and not in distress Eyes PERRL, conjunctivae normal, anicteric sclerae EOM intact bilaterally ENMT external ear and nose normal, oropharynx normal Nose: no nasal discharge Throat: no posterior oropharynx abnormality Neck trachea midline, no thyromegaly no tracheal deviation, no neck crepitus and neck nontender Respiratory normal respiratory effort, lungs clear to auscultation able to speak in complete sentences; no cough Auscultation: lungs clear to auscultation bilaterally and + diminished lung sounds; no rhonchi and no wheezes Cardiovascular RRR, no murmur, no edema Heart Sounds: no gallop Vessels: + carotid bruit, normal peripheral pulses, femoral pulses present, posterior tibial pulses present, dorsalis pedis pulses present, brachial pulses present and radial pulses present; no femoral bruit Extremities: normal capillary refill; no pedal edema and no edema Chest (Breasts) Chest: normal inspection of chest Gastrointestinal (Abdomen) normal bowel sounds, soft, nontender, no hepatosplenomegaly Inspection/Auscultation: abdomen normal to inspection and normal bowel sounds; abdomen not distended and no abdominal edema Percussion/Palpation: abdomen soft; abdomen nontender, no guarding and abdomen not rigid Musculoskeletal no cyanosis or clubbing, extremities motor strength 5/5 Head/Neck/Chest: normocephalic, head atraumatic and neck supple Extremities: extremities normal to inspection and strength 5/5 throughout; full ROM of extremities and no clubbing Skin no rashes, warm and dry normal turgor and + wound (BL groin punctures C/D/I. staple present over puncture); turgor not decreased, no rashes, no lesions and no erythema Trauma: + puncture (BL groins, + local tenderness and soft edema noted.); no hematoma Neurologic moves all extremities and awake; no focal motor deficits and not confused Speech / Cognition: no expressive aphasia and no receptive aphasia Motor/Sensory: no tremor and no sensory deficit Cranial Nerves: EOM intact bilaterally and normal facial strength Gait: not gait assisted Psychiatric Orientation: alert, oriented x 3, oriented to person, oriented to place, oriented to time and cooperative Apperance: appropriately dressed, appropriately groomed and appeared stated age ; not disheveled Affect: euthymic affect Thought Process: goal directed thought process, linear/logical thought process and clear/coherent thought process Cognition: recent memory grossly intact, remote memory grossly intact, attention grossly intact and language grossly intact Estimated Intelligence: average estimated intelligence Lymphatic no lymphedema Discharge Data Allergies Allergy/AdvReac Type Severity Reaction Status Date / Time adhesive Allergy Unknown PAPER Verified 07/16/18 05:45 TAPE, RASH AND IRRITATION No Known Drug Allergies Allergy Unknown NKA Verified 07/16/18 05:45 Consultations 07/16/18 10:14 Consult Playroom Attendant Routine Procedures Performed Operation Date: 07/16/18 07:30 Actual Procedures p Percutaneous Endovascular Aneurysm Repair, Percutaneous Closure Bilateral Femoral Arteries(Bilateral) - Eliseo Murillo MD Ordered Studies 07/16/18 07:19 EV AAA repair aorta only Routine US guide vascular access Routine Hospital Course (1) S/P AAA repair: Pt did well post op, remained stable. Taking PO and ambulating without difficulty. Pain well controlled. STable for d/c home on POD #1. (2) AAA (abdominal aortic aneurysm): Now s/p PEVAR Total Time Total Time Spent Total Time Spent (In Minutes): 15 minnutes Total Time Includes: Examination of the Patient, Discharge Planning and Medication Reconciliation Discharge Plan Discharge Items Patient Disposition: Home - Self-Care Reason For Visit: Abdominal Aortic Aneurysm Discharge Diagnosis: aaa Discharge Goals: Therapeutic intervention Activity: Per 'Additional Instructions' section Lifting: Gradually increase as tolerated Bathing Comment: May shower Exercise/Sports: Gradually increase as tolerated Driving/Machine Use: Resume 1 day after discharge Non-emergency contact: Surgeon Call non-emergency contact if: you have any medication questions, your symptoms worsen, your pain is not controlled, your pain is worsening, your pain is unusual for you, your pain is concerning for you, your temperature is above 101.5, your wound has increased redness, your wound has increased drainage and your wound pain has increased Follow-up/Referrals: Johan Davidson MD [Primary Care Provider] - Diet: Heart Healthy Addtl Provider Instructions: SPECIAL CARE INSTRUCTIONS: Medications: * Continue to take your medications as directed. Incision/Puncture Site Care: * You will have an incision or puncture in each of your groins. Liquid glue will be used to seal your incisions/puncture site. This will lift off as the incisions/puncture sites heal. * If Liquid glue is not used, there will be small dressings covering your incisions. After you get home, you may remove the dressings and shower - allowing the warm soapy water to run over it. * Be sure to dry the sites well and keep them dry. * DO NOT SOAK IN A TUB/POOL/etc. UNTIL ALL SURGICAL SITES ARE HEALED. DO NOT REMOVE THE GLUE UNTIL THE INCISIONS HEAL. Restrictions: * Limit yourself to regulatory auditor activity for the first week. * You may walk and go up and down steps. * Avoid excessive bending or movement at the level of the incisions or punctures. Risks and Possible Complications: * Infection/Drainage/Bleeding - Drainage or bleeding from the incisions/ puncture site should be minimal. If you have excessive bleeding or drainage, call our office ([phone]) right away. * Pain/Numbness - You may experience some mild pain or soreness at your incision sites. You may also have some numbness around the incisions or into the insides of your thighs. Bruising is normal and should resolve within 2 weeks. * Changes in Appetite or Bowel Habits - Mostly related to anesthesia and pain medication, some patients have reported decreased appetite and/or problems with constipation. These symptoms usually improve over a few weeks. Remembering to take an [id number] stool softener, as directed, will help you to avoid constipation. Call our office and seek emergent treatment if you develop: * Fever or chills * Have a temperature greater than 101 degrees F * Any redness or purulent drainage from your incisions or punctures * Severe abdominal, chest or back pain SKIN IRRITATION: * You may experience some redness and/or swelling in the area where radiation was administered. If any skin irritation occurs, please contact your family physician. You will be receiving a call from the Vascular Surgery Nurse after you are discharged. FOLLOW UP VISIT: It is important for you to keep your follow up appointments with your medical provider. Keep any scheduled doctor appointments. Call [phone] to schedule a follow up appointment if one not already scheduled. Prescriptions: New oxycodone-acetaminophen [Percocet] 5-325 mg Tablet 1 tab PO Q4H PRN (Reason: pain) Qty: 20 RF: 0 Continue atorvastatin 80 mg Tablet 80 mg PO PM RF: 0 atenolol 25 mg Tablet 25 mg PO QAM RF: 0 clopidogrel 75 mg Tablet 75 mg PO QAM RF: 0 aspirin [Aspir-81] 81 mg Tablet,Delayed Release (Dr/Ec) 81 mg PO QAM RF: 0 acetaminophen [Acetaminophen Extra Strength] 500 mg Tablet 1 tab PO Q6 PRN (Reason: Pain) RF: 0 lisinopril 10 mg Tablet 10 mg PO QAM RF: 0 nitroglycerin [Nitrostat] 0.4 mg Tablet, Sublingual 1 tab Sublingual UD PRN (Reason: CHEST PAIN) RF: 0 Visit Report Forms: [facility] Discharge Orders: Discharge Order (Routine); Ordered 07/17/18 Ordered By: Eliseo Murillo Admission Data Admit Date/Time: 07/16/18 07:15 Attending Provider: Eliseo Murillo Admit Provider: Eliseo Murillo Primary Care Provider: Johan Davidson Other Providers: Ferdinand Whitmore JR ; Elvin Peacock Service: Intensive Care Unit Other Interventions: Discharge Summary Assessment (RN) Last Done: 07/17/18 08:23 DC Date/Time DO NOT enter until pt leaves facility: 07/17/18 09:40
== END 2018-07-17 09:40 | disposition home or self-care (01) | DRG 269 ==
LOC: ASU 05:08 → 1E 07:15
DX: Z86.73 Personal history of transient ischemic attack (TIA), and cerebral infarction without residual deficits; Z96.653 Presence of artificial knee joint, bilateral; Z87.891 Personal history of nicotine dependence; Z68.33 Body mass index [BMI] 33.0-33.9, adult; E66.9 Obesity, unspecified; I71.4 Abdominal aortic aneurysm, without rupture; Z95.5 Presence of coronary angioplasty implant and graft; I10 Essential (primary) hypertension; E78.5 Hyperlipidemia, unspecified; I25.10 Atherosclerotic heart disease of native coronary artery without angina pectoris

== ENCOUNTER 2021-01-19 08:39 | Inpatient (IN) ==
--- NOTE | 2020-12-22 09:11 | PAT Medication Instructions ---
Medication Instructions Date of Service December 22, 2020 Home Medications Medication Instructions Recorded atenolol 25 mg tablet 25 mg PO QAM #90 tab 04/07/20 atorvastatin 80 mg tablet 80 mg PO PM #90 tab 04/07/20 clopidogrel 75 mg tablet 75 mg PO QAM #90 tab 04/07/20 lisinopril 10 mg tablet 10 mg PO QAM #90 tab 04/07/20 nitroglycerin [Nitrostat] 1 tab SUBLINGUAL UD PRN atenolol 25 mg tablet 25 mg PO QAM atorvastatin 80 mg tablet 80 mg PO PM clopidogrel 75 mg tablet 75 mg PO QAM lisinopril 10 mg tablet 10 mg PO QAM aspirin [Aspirin Low Dose] 81 mg PO QAM acetaminophen [Tylenol Extra Strength] 1,000 mg PO Q6H PRN Continue as directed nitroglycerin [Nitrostat] 1 tab SUBLINGUAL UD PRN (if needed) ASK your prescriber and surgeon clopidogrel 75 mg tablet 75 mg PO QAM aspirin [Aspirin Low Dose] 81 mg PO QAM DO NOT take the morning of surgery lisinopril 10 mg tablet 10 mg PO QAM Take morning of surgery With a small sip of water, OTHERWISE NOTHING TO EAT OR DRINK AFTER MIDNIGHT: atenolol 25 mg tablet 25 mg PO QAM acetaminophen [Tylenol Extra Strength] 1,000 mg PO Q6H PRN (okay to take up to 4 hours prior to surgery if needed) Take evening before surgery atorvastatin 80 mg tablet 80 mg PO PM acetaminophen [Tylenol Extra Strength] 1,000 mg PO Q6H PRN (if needed) Other Notes If you have any questions please call us at [phone] or [phone] or [phone] or [phone]
--- NOTE | 2020-12-24 13:36 | Anesthesiology Consultation ---
Date of Service December 24, 2020 Assessment & Plan (1) Encounter for pre-operative examination: - COVID screening: Per assessment on 12/24: Travel screen negative, no known COVID-19 positive contacts or current COVID-19 related symptoms. Surgeon arranging preop COVID testing (scheduled 01/17; [facility] [place]). Awaiting results. - Vascular office visit (06/28/20): "He is doing well.. He has no complaints of claudication or cerebrovascular insufficiency.. At this point he is doing well. His endoleak has sealed. His aneurysm sac is unchanged." F/U 1 year recommended. - S/P PEVAR (07/16/18): Grade view 1, MAC#3, ETT 8.0 at [facility] - Plavix instructions: patient made aware that in order for spinal anesthesia, Plavix needs to be held 7 days prior to surgery. Patient voiced understanding/will check if okay with prescriber. Chart Review Chart Review: Acceptable Risk for Surgery (pending surgeon-ordered PCP clearance) and Patient seen in Pre Admission Testing Teaching & Discussion Pre-Anesthesia Teaching/Discussion Notes: Instructed NPO after midnight before surgery,except medications with 15 cc of water. Medication instructions provided according to the PAT guidelines. History Surgery Operation Date: 01/19/21 09:00 Proposed Procedures p Right Knee: Synovectomy, Poly Exchange Tibia, Patellar Revision - Saeed Arias MD Height/Weight Height: 5 ft 10 in Weight: 112.9 kg Allergies Allergy/AdvReac Type Severity Reaction Status Date / Time adhesive Allergy Unknown Rash, Verified 12/24/20 13:28 irritation (paper tape) No Known Drug Allergies Allergy Unknown NKA Verified 12/21/20 15:04 Medications Home Medications Medication Instructions Recorded Confirmed Last Taken nitroglycerin [Nitrostat] 1 tab SUBLINGUAL UD PRN 07/10/18 12/21/20 Unknown atenolol 25 mg tablet 25 mg PO QAM #90 tab 04/07/20 12/21/20 Unknown atorvastatin 80 mg tablet 80 mg PO PM #90 tab 04/07/20 12/21/20 Unknown clopidogrel 75 mg tablet 75 mg PO QAM #90 tab 04/07/20 12/21/20 Unknown lisinopril 10 mg tablet 10 mg PO QAM #90 tab 04/07/20 12/21/20 Unknown aspirin [Aspirin Low Dose] 81 mg PO QAM 08/25/20 12/21/20 Unknown acetaminophen [Tylenol Extra 1,000 mg PO Q6H PRN 12/21/20 12/21/20 Unknown Strength] Past Medical History Medical History CAD (coronary artery disease) BMS x2 to pLAD (2002), LEONILA to LAD (2010) Hyperlipidemia Hypertension Lung nodule Under surveillance x several years Obesity Osteoarthritis Transient ischemic attack (TIA) 25 years ago 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) Exercise / Class Metabolic Activity II 4-5 Yardwork/Stairs/Walk up hill (one flight of stairs (no chest pain, no sob)) Past Family History Family History Mother Family history of diabetes mellitus Past Surgical History Surgical History AAA (abdominal aortic aneurysm) PEVAR (07/16/18): Grade view 1, MAC#3, ETT 8.0 at [facility] History of cardiac cath BMS x2 to pLAD (2002), LEONILA to LAD (2010) History of cataract extraction with lens replacement R/L History of eye surgery Right lens revision History of surgery on extremity 2001 (hx of right injury > compartment syndrome) History of tonsillectomy History of total knee replacement R/L History of vitrectomy Past Anesthesia History No Hx of Anesthesia Complications and No Family Hx of Anesthesia Complications History of PONV No Hx of PONV and No Hx of Motion Sickness Social History Smoking Status: Former smoker tobacco type: cigarettes Do You Dip or Chew Tobacco: No Smoking End Date: Quit 20+ years ago (hx 1-1.5PPD x total of 10 years) Hx Alcohol Use: Yes Alcohol type: beer alcohol intake frequency: holidays/special occasions only Hx Substance Use: No substance use type: does not use Review of Systems No snoring. Patient denies chest pain, shortness of breath, dyspnea on exertion, fever, chil ls, cough, wheezing, palpitations. Physical Exam Vital Signs VITALS BP 115/70 P 53 TEMP SP02 97%RA RESP 18 PHYSICAL Full cervical extension range of motion. Full TMJ range of motion. TMD 3 finger breaths Mallampati Score 4 Dentition: intact Lungs: clear throughout to auscultation Cardiac: regular rate and rhythm, no murmurs noted Spine: normal Carotid arteries: negative bruit Extremities: no edema Right eye dilated Lab Results Anesthesia Preop Results Results Anesthesia Widget: WBC 8.49 K/uL (4.8-10.8) 12/24/20 Hgb 14.6 g/dL (14.0-18.0) 12/24/20 Hct 44.0 % (42-52) 12/24/20 Plt 301 K/uL (130-400) 12/24/20 Na 138 mmol/L (136-145) 12/24/20 K 4.8 mmol/L (3.5-5.1) 12/24/20 Cl 108 mmol/L (98-107) H 12/24/20 CO2 27 mmol/L (21-32) 12/24/20 BUN 13 mg/dl (7-18) 12/24/20 Creat 0.81 mg/dl (0.6-1.4) 12/24/20 Glucose Level 87 mg/dl (70-99) 12/24/20 PT 10.4 Seconds (9.0-12.0) 12/24/20 PTT 29.8 Seconds (21.0-31.0) 12/24/20 INR 1.0 (0.9-1.1) 12/24/20 Urine Color Yellow 12/24/20 Urine Appearance Clear (Clear) 12/24/20 Urine pH 5.0 (4.5-7.5) 12/24/20 Urine Specific [place] 1.017 (1.000-1.030) 12/24/20 Urine Protein Negative (Negative) 12/24/20 Urine Glucose (UA) Negative (Negative) 12/24/20 Urine Ketones Negative (Negative) 12/24/20 Urine Blood 1+ (Negative) H 12/24/20 Urine Nitrite Negative (Negative) 12/24/20 Urine Bilirubin Negative (Negative) 12/24/20 Urine Urobilinogen Negative (Negative) 12/24/20 Urine Leukocyte Esterase Negative (Negative) 12/24/20 Urine WBC (Auto) 1-5 /hpf (0-5) 12/24/20 Urine RBC (Auto) 0-4 /hpf (0-4) 12/24/20 Urine Hyaline Casts (Auto) 0 /lpf (0-5) 12/24/20 Urine Epithelial Cells (Auto) 0-5 /lpf (0-5) 12/24/20 Urine Bacteria (Auto) Negative (Negative) 12/24/20 Blood Type O Positive 12/24/20 Antibody Screen NEGATIVE 12/24/20 Testing Electrocardiogram Date: 08/25/20 Findings: + NSR @ (61) Chest X-Ray Date: 08/25/20 Findings: + NAD Other Testing Carotid duplex (07/01/18): 50% stenosis ICA by early. Antegrade flow in both vertebral arteries.
--- NOTE | 2021-01-16 17:29 | History & Physical Report ---
Date of Service January 16, 2021 Assessment & Plan (1) Loosening of prosthesis of right total knee replacement: Treatment options discussed. He has failed conservative measures and would like to proceed with surgical intervention. Risks, benefits and alternatives to surgery including but not limited to infection, DVT, pain, stiffness, need for revision surgery, damage to blood vessels, damage to nerves, PE, , were discussed with the patient and they wish to proceed. Plan fo right total knee revision of patella component , possible titanium patella implant vs patellectomy, poly exchange. Will plan on resuming home aspirin and Plavix post discharge. He will do outpatient PT post discharge. All questions answered. F/u post operatively. Encounter type: subsequent encounter Qualified Code(s): T84.032D - Mechanical loosening of internal right knee prosthetic joint, subsequent encounter History of Present Illness Chief Complaint: Right knee pain Primary Care Provider: Johan Davidson MD 65 year old male with PMHx significant for HTN, high cholesterol, CAD with stents presents with ongoing right knee pain. He has history of TKA. 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 He has continued pain interfering with his daily activities and would like to proceed with revision surgery. Patient denies headaches, sweats, fevers, chills, double vision, blurred vision, cough, sore throat, dysphagia, chest pain, sob, wheezing, n/v/d/c, numbness, tingling, fatigue, urinary symptoms, mood disorders. ROS positive for right knee pain and stiffness. Allergies Allergy/AdvReac Type Severity Reaction Status Date / Time adhesive Allergy Unknown Rash, Verified 01/04/21 08:52 irritation (paper tape) No Known Drug Allergies Allergy Unknown NKA Verified 01/04/21 08:52 Home Medications Medication Instructions Recorded Confirmed Type nitroglycerin [Nitrostat] 1 tab SUBLINGUAL UD PRN 07/10/18 01/04/21 History aspirin [Aspirin Low Dose] 81 mg PO QAM 08/25/20 01/04/21 History acetaminophen [Tylenol Extra 1,000 mg PO Q6H PRN 12/21/20 01/04/21 History Strength] atenolol 25 mg tablet 25 mg PO QAM #90 tab 01/04/21 01/04/21 Rx atorvastatin 80 mg tablet 80 mg PO PM #90 tab 01/04/21 01/04/21 Rx clopidogrel 75 mg tablet 75 mg PO QAM #90 tab 01/04/21 01/04/21 Rx lisinopril 10 mg tablet 10 mg PO QAM #90 tab 01/04/21 01/04/21 Rx Past Med/Surg History Medical History CAD (coronary artery disease) Hyperlipidemia Hypertension Lung nodule Obesity Osteoarthritis Transient ischemic attack (TIA) Unequal pupils Surgical History AAA (abdominal aortic aneurysm) History of cardiac cath History of cataract extraction with lens replacement History of eye surgery History of surgery on extremity History of tonsillectomy History of total knee replacement History of vitrectomy Family History Mother Family history of diabetes mellitus Social History Smoking Status: Former smoker Second Hand Exposure: Yes (FATHER SMOKED); Hx Alcohol Use: Yes Alcohol type: beer Hx Substance Use: No Preferred Language: Icelandic Communication Ability: Effective Visual Impairment: No Limitations Fibre Composite Technician Required: No Beliefs That Will Affect Care: None Current Living Situation: Spouse and Family current occupational status: employed current occupation: [employer] Feels Safe at Home: Yes Assistive Devices: Brace/Splint/Immobilizer and Glasses Review of Systems All systems reviewed & are unremarkable except as noted in HPI & below Physical Exam Constitutional: well developed and well nourished; no acute distress Eyes: PERRL, conjunctivae normal, anicteric sclerae ENMT: external ear and nose normal, oropharynx normal Neck: trachea midline, no thyromegaly Respiratory: normal respiratory effort, lungs clear to auscultation Cardiovascular: RRR, no murmur, no edema Musculoskeletal: Right knee: No erythema, surgical scars. Moderate effusion. Moderate crepitation, stable to valgus and varus stress. ROM 0-100 degrees. Skin: no rashes, warm and dry Neurologic: patellar DTR's 2+ bilat, sensation intact Psychiatric: A+Ox3, euthymic affect Results & Data ([facility]) Diagnostic Findings X-rays of the right knee demonstrate that the patient has a [employer] knee replacement on the right and left knee. The patella demonstrates that he has avascular necrosis with some splitting of the patella into medial and lateral fragments. The patella component is still fixed to the fragments. The patella is laterally aligned on skyline view over the lateral femoral condyle to central area of the knee. This has changed from the original alignment, which occurred immediately postoperatively. On the lateral view there has been some bone erosion under the superior flange of the prosthetic, and there is a concave area under the medial femoral condyle, which could be signs of osteolysis. There is no gross evidence of any loosening of the femoral or tibial components or change in alignment from the original postoperative x- rays.
[~2021-01-19 08:39] MED LIST changes: -ACET-1138 PO; +ACETAMINOPHEN 500 MG TAB PO SCH; -ASPI81TA28 PO; -ATEN-173 PO; -ATOR-26 PO; +BUPIVACAINE 0.25% 30 ML VIAL ONE; +BUPIVACAINE 0.5 % 5 MG/1 ML PF 10ML VIAL ONE; -CLOP1TAB15 PO; +CeleBREX 200 MG CAP PO SCH; +EPINEPHrine INJ 1 MG/ML AMP ONE; +FAMOTIDINE 20 MG TAB PO SCH; +GABAPENTIN 300 MG CAP PO SCH; -LISI-461 PO; -NTRGSL/4 UT; -OXYSR10 PO; +ROPIVACAINE 0.5% HCL/PF 150 MG, BUPIVACAINE 0.75% MPF 20 ML, EPINEPHrine 30MG/30ML (OR ... INSTIL SCH; -RXC5 PO; +TRANEXAMIC ACID 1,000 MG **IV Intra-op IV SCH; +TRANEXAMIC ACID 1,000 MG **IV Pre-op IV SCH; +VANCOMYCIN HCL 1,750 MG in SODIUM CHLORIDE 0.9% 500 ML IV SCH; +ceFAZolin 2000MG 2,000 MG/15 ML SYR IV SCH; +dexAMETHasone 4 MG TAB PO SCH
[2021-01-19] MEDS ORDERED: LR 500ML BOLUS, THEN 15ML/HR IV SCH (10:00)
[2021-01-19] MEDS ORDERED: MIDAZOLAM HCL 1 MG/ML 2ML VIAL ONE ×2 (11:11→13:56)
--- NOTE | 2021-01-19 11:35 | History & Physical Bridge Note ---
Date of Service January 19, 2021 History & Physical Bridge Note I have examined the patient, reviewed the History & Physical and in the interval since the performance of the History & Physical I have noted the following changes of clinical significance: no changes noted
[2021-01-19] MEDS ORDERED: ORTHO JOINT ANESTHETIC ONE (11:41)
[2021-01-19] MEDS ORDERED: KETAMINE 50 MG/5 ML SYRINGE ONE (12:12)
[2021-01-19] MEDS ORDERED: LIDOCAINE 2% 2 ML VIAL/AMP(20MG/ML) INFIL ONE (13:10)
[2021-01-19] MEDS ORDERED: PROPOFOL IV EMULSION 10 MG/ML 20 ML VIAL IV ONE ×3 (13:10→14:34)
[2021-01-19] MEDS ORDERED: PHENYLEPHRINE 100MCG/ML 5ML SYR ONE (14:27)
--- NOTE | 2021-01-19 15:08 | Post Operative Brief Note ---
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 Post-Op Diagnosis: Right knee: Chronic aseptic synovitis, with osteolysis status post total knee replacement, loose patella, avascular necrosis of patella, surface wear of tibia polyethylene, obesity BMI 37.5 I identified the patient and participated in the time-out.: Yes Procedure Operation Date: 01/19/21 11:50 Actual Procedures p Right Knee: Polyethylene exchange Tibia, Patellar component revision with titanium metal-backed patella, patellar realignment with lateral release, electrocautery synovectomy. (Right) - Saeed Arias MD Surgeon Saeed Arias MD Java Development Manager Sushil PELAYO Estimated Blood Loss 15 Findings Consistent with Post-Op Diagnosis Specimens Loose patella polyethylene and explanted tibial polyethylene Drains Hemovac Drain Anesthesia Type General Regional Complications none Disposition Accompanied Patient To Recovery: No Disposition: Recovery Room Overlapping Procedure I was present for: the critical portions of procedure.
--- NOTE | 2021-01-19 15:59 | XRay Report ---
XR knee RT 1 or 2V routine HISTORY: 65 years-old Male Surgical Post Op right knee total joint arthroplasty COMPARISON: Radiographs 08/02/2016 TECHNIQUE: 2 views of the right knee FINDINGS: Right knee total joint arthroplasty with patellar resurfacing. Anterior midline skin ava are note d along with expected postoperative soft tissue swelling and deep tissue air with surgical drainage c atheter. Arterial calcifications. No acute fracture or unexpected opaque foreign body. IMPRESSION: Right knee total joint arthroplasty with expected postoperative changes. ACT 112: Negative or not required by law. The above report was generated using voice recognition software. It may contain grammatical, syntax o r spelling errors. Electronically signed by: Daniel Giron M.D. 01/19/2021 3:57 PM
[2021-01-19] MEDS ORDERED: ePHEDrine sulfate 50 MG/ML AMP IV PRN (16:00)
[2021-01-19] MEDS ORDERED: ATROPINE SULFATE 0.1 MG/ML 10ML SYR IV PRN (16:00)
--- NOTE | 2021-01-19 16:01 | Anesthesiology Progress Note ---
Date of Service January 19, 2021 Anesthesia Post Procedure Vital Signs Vital Signs: Temp Pulse Pulse Resp BP Pulse Ox 01/19/21 15:50 84 16 127/80 96 01/19/21 15:40 87 16 143/95 H 94 01/19/21 15:32 36.7 C 16 135/74 97 01/19/21 09:24 36.6 C 62 20 163/91 H 98 Transfer of Care Handoff Completed per policy Notes Mental Status: alert / awake / arousable Patient Amnestic to Procedure: Yes Nausea / Vomiting: adequately controlled Pain: adequately controlled Airway Patency, RR, SpO2: stable & adequate BP & HR: stable & adequate Hydration State: stable & adequate Neuraxial Anesthesia: was administered and sensory block is resolving Anesthetic Complications: no major complications apparent and Pt Satisfied with anesthetic care
[2021-01-19] MEDS ORDERED: VANCOMYCIN HCL 1,750 MG in SODIUM CHLORIDE 0.9% 250 ML IV SCH (16:27)
[2021-01-19] MEDS ORDERED: METOCLOPRAMIDE HCL INJ 5 MG/ML 2 ML VIAL IV PRN (16:27)
[2021-01-19] MEDS ORDERED: oxyCODONE HCL IR 5 MG TAB (IMMEDIATE RELEASE) PO PRN (16:27)
[2021-01-19] MEDS ORDERED: VANCOMYCIN CONSULT ACTIVE PRN (16:27)
[2021-01-19] MEDS ORDERED: MAGNESIUM HYDROXIDE SUSP 30 ML UDC PO PRN (16:27)
[2021-01-19] MEDS ORDERED: TAMSULOSIN HCL 0.4 MG CAP PO PRN (16:27)
[2021-01-19] MEDS ORDERED: ONDANSETRON INJ 2 MG/ML 2 ML VIAL IV PRN (16:27)
[2021-01-19] MEDS ORDERED: NALOXONE HCL 0.4 MG/1 ML VIAL/CARP IV PRN (16:27)
[2021-01-19] MEDS ORDERED: NITROGLYCERIN SL 0.4 MG/TAB TAB SL PRN (16:27)
[2021-01-19] MEDS ORDERED: bisacodyL 10 MG SUPP PR PRN (16:27)
[2021-01-19] MEDS ORDERED: HYDROmorphone INJ 0.5 MG/0.5 ML SYR IV PRN (16:27)
[2021-01-19] MEDS: SODIUM CHLORIDE 0.9% 1000ML 1,000 ML IV SCH (17:14)
--- NOTE | 2021-01-19 17:21 | Hospitalist Consultation ---
Date of Consultation January 19, 2021 Assessment & Plan (1) Loosening of prosthesis of right total knee replacement: p Right Knee: Polyethylene exchange Tibia, Patellar component revision with titanium metal-backed patella, patellar realignment with lateral release, electrocautery synovectomy. (Right) - Saeed Arias MD EBL 15cc. Pre-op h/h 14.6/44 Ancef/Vanco abx NSS @ 100cc/hr ordered by primary PT/OT/pain management/DVT prophylaxis per primary service --> plavix resumed for tomorrow morning, 01/20 as already ordered (2) CAD (coronary artery disease): BMS x2 to pLAD (2002), LEONILA to LAD (2010). Follows with Dr. Whitmore. (Underwent L TKA 2014, s/p R TKA 2016 both without cardiac complications) Continues on ASA 81mg, plavix 75mg, atenolol 25mg, atorvastatin 80mg daily (Plavix held 7 days prior to surgery but continued on ASA uninterrupted) Plavix to be resumed tomorrow morning as already ordered by Orthopedics EKG c CP, Nitro prn (3) Hypertension: Chronic Maintained on lisinopril 10mg daily, atenolol 25mg daily -- will continue given BP 159/85. Hold lisinopril if BP hypotensive (4) Hyperlipidemia: Chronic Continue atorvastatin 80mg HS (5) Presence of drug coated stent in LAD coronary artery: Noted as above (6) S/P AAA repair: PEVAR (07/16/18): Grade view 1, MAC#3, ETT [address] [facility] with Dr. Murillo ASA/Plavix as above (7) Pre-diabetes: No known hx diabetes, but A1c 6.3 up from previous 6.1. Will need continued counseling/follow up with PCP (8) DVT prophylaxis: SCDs, Shashi hose ASA continued, plavix to resume in AM 01/20 Dispo: home with OPPT planned through [facility] Thank you for allowing hospitalist service to participate in the care of Mr. Gupta. Hospitalist service will follow with chart check in AM/see if needed. Please call sooner with any questions/concerns. History of Present Illness Reason for Consultation: medical management Requesting Physician: Dr Arias Attending Physician: Saeed Arias MD History of Present Illness 65 year old male with PMHx significant for CAD, AAA repair, HTN, HLD, degenerative disc disease presented for RIGHT knee synovectomy, polyethylene exchange tibia, patella revision, lateral release by Dr. Arias. Patient seen in room 311 post-operatively. Pain well controlled but notes this occured last time and is expecting increased pain as block wears off from surgery. Ate dinner without issues and currently finishing his coffee. Patient states he feels he is doing well. Seen recently by Dr Whitmore and held his Plavix for 7 days pre-operatively and to be resumed when deemed safe by ort hopedics, likely when hemovac drain output decreases. He already has outpatient therapy set up to begin with [facility] on the of this month for 15 sessions, to be extended if he needs. He notes he did have fluid pulled off this leg months ago, but that it was "not infectious or I'd have gotten this fixed a while ago". No fever, chills, chest pain, shortness of breath, abdominal pain, nausea or v omiting. Hopeful for d/c tomorrow after he works with therapy. Of note, denies hx of DM however last A1c pre-DM at 6.3 Allergies Allergy/AdvReac Type Severity Reaction Status Date / Time adhesive Allergy Mild Rash, Verified 01/19/21 09:10 irritation (paper tape) No Known Drug Allergies Allergy Unknown NKA Verified 01/19/21 09:10 Home Medications Medication Instructions Recorded Confirmed Type nitroglycerin [Nitrostat] 1 tab SUBLINGUAL UD PRN 07/10/18 01/19/21 History aspirin [Aspirin Low Dose] 81 mg PO QAM 08/25/20 01/19/21 History acetaminophen [Tylenol Extra 1,000 mg PO Q6H PRN 12/21/20 01/19/21 History Strength] atenolol 25 mg tablet 25 mg PO QAM #90 tab 01/04/21 01/19/21 Rx atorvastatin 80 mg tablet 80 mg PO PM #90 tab 01/04/21 01/19/21 Rx clopidogrel 75 mg tablet 75 mg PO QAM #90 tab 01/04/21 01/19/21 Rx lisinopril 10 mg tablet 10 mg PO QAM #90 tab 01/04/21 01/19/21 Rx Patient History Medical History CAD (coronary artery disease) BMS x2 to pLAD (2002), LEONILA to LAD (2010) Hyperlipidemia Hypertension Lung nodule Under surveillance x several years Obesity Osteoarthritis Transient ischemic attack (TIA) 25 years ago 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 History of cardiac cath BMS x2 to pLAD (2002), LEONILA to LAD (2010) History of cataract extraction with lens replacement R/L History of eye surgery Right lens revision History of surgery on extremity 2001 (hx of right injury > compartment syndrome) History of tonsillectomy History of total knee replacement R/L History of vitrectomy Family History Mother Family history of diabetes mellitus Social History Smoking Status: Former smoker Smoking End Date: Quit 20+ years ago (hx 1-1.5PPD x total of 10 years); Second Hand Exposure: No; Do You Dip or Chew Tobacco: No; Hx Alcohol Use: Yes Alcohol type: beer Hx Substance Use: No Preferred Language: Sami Communication Ability: Effective Visual Impairment: No Limitations Cosmetic Account Coordinator Required: No Beliefs That Will Affect Care: None Current Living Situation: Spouse current occupational status: employed current occupation: [employer] Other Information That Helps Us Care for You: No Feels Safe at Home: Yes Safety Concerns: Feels Safe At This Time Assistive Devices: None Assistive Devices Comment: KNEE COMPRESSION SLEEVE AT WORK Review of Systems Review of Systems: All systems reviewed & are unremarkable except as noted in HPI & below Physical Exam Constitutional: WD/WN, vitals as above cooperative and comfortable (sitting up in chair eating dinner); no acute distress Eyes: + anicteric sclerae ENMT: Ears: no hearing impairment Neck: trachea midline, no thyromegaly Respiratory: normal respiratory effort, lungs clear to auscultation ON ROOM AIR Cardiovascular: RRR, no murmur, no edema Gastrointestinal (Abdomen): normal bowel sounds, soft, nontender, no hepatosplenomegaly Musculoskeletal: dressing with morena wrap to R knee with SCDs on. pulses palpable bilaterally NVI hemovac with 20-25cc bloody drainage Neurologic: PERRL, EOMI, accommodation nl, no face palsy, no dysarthria Psychiatric: A+Ox3, euthymic affect Lymphatic: no cervical or axillary lymphadenopathy Results & Data Results & Data ([facility]) Vital Signs (Past 12 Hours) Vital Signs Temp Pulse Pulse Resp BP Pulse Ox 01/19/21 16:50 36.4 C L 74 20 159/85 H 97 01/19/21 16:20 37.0 C 71 17 165/84 H 97 01/19/21 16:10 36.4 C L 84 16 132/76 96 01/19/21 16:00 36.5 C 81 16 132/79 96 01/19/21 15:50 84 16 127/80 96 01/19/21 15:40 87 16 143/95 H 94 01/19/21 15:32 36.7 C 16 135/74 97 01/19/21 09:24 36.6 C 62 20 163/91 H 98 Laboratory Results 01/19/21 01/19/21 Range/Units 08:54 08:54 COVID[facility]19 [facility], [facility], NAAT Pending PG Care Time/CCT Total # of Minutes Spent Total Time Spent with Patient: Total time spent is greater than 50% in coordination of care (as documented) at patient's floor/unit and/or counseling patient: Coding Level of Care Code 16216 Office/OBS Consult Lvl 3 Diagnoses 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
[2021-01-19] MEDS: DOCUSATE SODIUM 100 MG CAP PO SCH (20:55)
[2021-01-19] MEDS: ceFAZolin 2000MG 2,000 MG/15 ML SYR IV SCH (20:59)
[2021-01-19] MEDS ORDERED: ATORVASTATIN 40 MG TAB PO SCH (21:00)
[2021-01-19] MEDS: ACETAMINOPHEN 500 MG TAB PO SCH (21:00)
[2021-01-19] MEDS ORDERED: SENNA 8.6 MG TAB PO SCH (21:00)
--- NOTE | 2021-01-19 23:13 | Operative Report (OR) ---
DATE OF PROCEDURE: 01/19/2021 INDICATIONS FOR PROCEDURE: The patient is a 65-year-old male who in 2017 had a right knee replacemen t. This was complicated by avascular necrosis of the patella, which eventually fragmented and his pa tella began to loosen. Now, he has a loose patella and has chronic synovitis in the knee. He was ma naging this conservatively for a while, but now he has continued pain and swelling in the knee. Ther e are no signs of infection. Infection markers and testing preop were negative for septic knee replac ement. Radiographs demonstrate that he has 2 large fragments of patella with the patella appears to be loosened from the bone fragments, but not displaced. His tibial polyethylene still intact radiogr aphically and clinically. 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 PROCEDURE: Right knee tibial polyethylene exchange of right total knee replacement and patellar comp onent revision with a titanium metal-backed patella and patellar realignment with lateral release and electrocautery synovectomy. SURGEON: Saeed Arias MD. CLINICAL DOCUMENTATION SPEC: Major Munoz PA-C. ESTIMATED BLOOD LOSS: 15 mL. FINDINGS: Consistent with postoperative diagnosis. SPECIMENS: Patella and tibial polyethylene. DRAINS: Two Hemovacs. ANESTHESIA: Spinal, MAC, regional block and Orthomix. COMPLICATIONS: None. DISPOSITION: To recovery room. OVERLAPPING PROCEDURE: I was present for the critical portions of the procedure and no backup surgeo n was required. DESCRIPTION OF PROCEDURE: The patient was taken to the operating room, anesthetized under anesthesia as dictated. He had preoperative antibiotics. A pneumatic tourniquet was placed on his right upper thigh. His right lower extremity demonstrated he had full extension. He had flexion to about 125 d egrees. He had a large knee effusion. There is no drainage, no erythema, no increased warmth. A li ttle bit of mid flexion laxity with varus and valgus stress, mainly varus stress. The right lower ex tremity was then sterilely prepped and draped with ChloraPrep. The leg was elevated, exsanguinated w ith an Esmarch bandage and pneumatic tourniquet was raised to 350 mmHg. His previous anterior scar was utilized for a longitudinal incision. Skin incised sharply, subcutane ous flaps were elevated. Incision was made through the medial retinaculum and extended up in the mid third of the quadriceps tendon and extended down to the medial tibial tubercle. There is a thick la cynthia of synovial tissue with chronic synovial scarred tissue. We did take a culture of the fluid, but the fluid looked normal, just normal yellow clear fluid. The patella was noted to be displaced and was floating freely in the suprapatellar pouch and the patella polyethylene was removed. The patella itself was widened with osteophytes around the patella and the patella was in 2 large fragments of b one, which were noted on previous x-rays. The extensor mechanism was completely intact. There was s car tissue between the separate bone fragments. There was eburnation on some of the patella as thoug h it was articulating with the femoral component, as there was some wear pattern on it. The tibial polyethylene had intact polyethylene post. There was surface wear with pitting on both me dial and lateral sides, sort of a symmetrical diffuse surface wear. The knee was copiously irrigated with saline solution. I then did an electrocautery synovectomy removing the thickened synovial tiss ue from the gutters and suprapatellar pouch area. This was enough to expose the tibial polyethylene for removal, was easily removed with a hemostat, placed under it in the tenaculum, removed it unevent fully. The larger bone spurs around the patella were removed with a rongeur, getting it back to a mo re reasonable size and some of the lateral bone was resected to help realign the patella as the mcclellan la was preoperatively tracking laterally over the femoral condyle with a significant lateral tilt. T he knee was then copiously irrigated again with saline solution. We did a trial reduction with a tibial polyethylene. The patient had a [employer] Journey 2.0 total knee replacement and he had a 7/8 x 10 poly in there previously. So we did try 10 and 11 and h e had a little bit of laxity, so we upsized it to an 11 based on the trialing. The final 7/8 x 11 ti bial polyethylene was then placed in position and the squirrel worker was used to place it into the tibia wi th solid fixation and the knee was taken through a full range of motion and the knee was stable. Att ention was then taken to the patella. We did subperiosteal P/A lateral release around the lateral pa tellar area, trimmed some bone. Looked at different sized patellar replacements that we could use an d we chose the Gladys TM augmented patella, which is a titanium patella with patella polyethylene. C hose the medium 19 mm thickness. This required reaming of the patellar fragments that were remaining and we reamed it down so that on placement of the trial, we could get a 24 mm patella thickness. After the reaming was completed and after copious irrigation, the Gladys TM augmented patella was sut ured to the bone fragments of the patella per the technique recommended using #2 FiberWire sutures us ing a drill to drill through bone when necessary and using a [email or web address] suture passer to pass the FiberWi re as well as a Hunter needle. Knots were all tied on the polyethylene side of the patella. The impl ant was secured with the suturing and the patellar button was cemented to the implant with a thin lay er of cement and held in place with a clamp until the cement hardened completely. The tourniquet was let down at this time. Some bleeders were coagulated. Knee joint was soaked with Betadine soak for 3 minutes and then this was irrigated out again with the saline solution. Then, we checked patellar tracking and there was some slight lateral tilt of the p atella that I felt a lateral release would improve the patellar tracking, so I did a lateral release leaving the synovium intact and this allowed the patella to track centrally through full range of mot ion. After further irrigation, two drains were brought out laterally and then the VMO and medial ret inacular area were closed with interrupted #2 FiberWire sutures with permanent sutures in that area. Patellar tracking was again assessed to be central and that closure was secure through full range of motion. Then, the upper quad tendon longitudinal split and a lower medial retinacular repair was performed wi th interrupted [id number] #1 Vicryl sutures. Knee was again taken through full range of motion and the repair was secure through 0 through 130 degrees range of motion. Then, the subcutaneous tiss ues were closed with interrupted 2-0 Vicryl sutures and the skin was closed with ava and standard sterile dressings were applied and Alfonso wrap from the foot to the thigh. The tourniquet was previous ly let down, the patient had normal capillary refill when the drapes were taken down and then the pat ient tolerated the procedure well without any complications. Major Munoz PA-C was my bioinformatics assistant and he functioned as bioinformatics assistant through the entire p rocedure. He assisted in patient prepping, draping, patient positioning, assisted in soft tissue ret raction, leg positioning and he assisted in the Vicryl portion of the fascial repair and the subcutan eous and skin closure and will participate in the postoperative care of the patient. Job ID: [id number]
[2021-01-20] MEDS: SODIUM CHLORIDE 0.9% 1000ML 1,000 ML IV SCH (03:43)
[2021-01-20] MEDS: ceFAZolin 2000MG 2,000 MG/15 ML SYR IV SCH (04:32)
[2021-01-20] MEDS: ACETAMINOPHEN 500 MG TAB PO SCH (05:54)
[2021-01-20 06:22] LABS: Hematocrit (blood only) 36.6 % (42-52); Hemoglobin 12.2 g/dL (14.0-18.0); Mean Corpuscular Hemoglobin 32.1 pg (25-34); Mean Corpuscular Hgb Conc 33.3 g/dL (32-36); Mean Corpuscular Volume 96.3 fL (80-100); Mean Platelet Volume 10.4 fL (7.4-10.4); Platelet Count 282 K/uL (130-400); RDW Coefficient of Variation 13.3 % (11.5-14.5); RDW Standard Deviation 46.6 fL (36.4-46.3); White Blood Count 23.13 K/uL (4.8-10.8)
[2021-01-20 06:55] LABS: BUN Creatinine Ratio 18.1 (10-20); Calcium 8.6 mg/dl (8.5-10.1); Creatinine Clr Calc Pharmacy 100.8 ml/min; Est GFR (African American) 102.5 ml/min; Est GFR (Non-African American) 88.5 ml/min; Potassium 4.2 mmol/L (3.5-5.1)
[2021-01-20] MEDS: DOCUSATE SODIUM 100 MG CAP PO SCH (07:20)
--- NOTE | 2021-01-20 08:31 | Anesthesiology Progress Note ---
Date of Service January 20, 2021 Anesthesia Post Procedure Vital Signs Vital Signs: Temp Pulse Pulse Resp BP Pulse Ox 01/20/21 07:17 37.1 C 68 18 145/74 H 96 01/20/21 03:15 36.5 C 83 16 115/72 97 01/19/21 22:45 36.6 C 84 16 124/68 95 01/19/21 20:50 36.6 C 88 14 155/80 H 96 01/19/21 19:20 36.4 C L 78 16 142/76 H 96 01/19/21 18:22 36.7 C 76 17 147/76 H 95 01/19/21 17:20 36.4 C L 79 18 152/90 H 94 01/19/21 16:50 36.4 C L 74 20 159/85 H 97 01/19/21 16:20 37.0 C 71 17 165/84 H 97 01/19/21 16:10 36.4 C L 84 16 132/76 96 01/19/21 16:00 36.5 C 81 16 132/79 96 01/19/21 15:50 84 16 127/80 96 01/19/21 15:40 87 16 143/95 H 94 01/19/21 15:32 36.7 C 16 135/74 97 01/19/21 09:24 36.6 C 62 20 163/91 H 98 Pain Intensity Right Knee: Pain Intensity: 0 Notes Mental Status: alert / awake / arousable and participated in evaluation Patient Amnestic to Procedure: Yes Nausea / Vomiting: adequately controlled Pain: adequately controlled Airway Patency, RR, SpO2: stable & adequate BP & HR: stable & adequate Hydration State: stable & adequate Neuraxial Anesthesia: was administered and sensory block resolved Anesthetic Complications: no major complications apparent
[2021-01-20] MEDS ORDERED: lisinopril 10 MG TAB PO SCH (09:00)
[2021-01-20] MEDS ORDERED: ATENOLOL 25 MG TABLET PO SCH (09:00)
[2021-01-20] MEDS ORDERED: CLOPIDOGREL BISULFATE 75 MG TAB PO SCH (09:00)
[2021-01-20] MEDS ORDERED: ASPIRIN 81 MG ECTAB PO SCH (09:00)
[2021-01-20] MEDS ORDERED: MULTIVITAMIN TAB PO SCH (09:00)
--- NOTE | 2021-01-20 09:48 | Orthopedic Progress Note ---
Date of Service January 20, 2021 Assessment & Plan (1) Loosening of prosthesis of right total knee replacement: Postop day 1 status post right polyethylene bearing change and revision patella. PT/OT protocols. Weightbearing as tolerated. DVT prophylaxis-p.o. Plavix and aspirin. SCDs. Pain management as written. Leukocytosis. Patient is asymptomatic and afebrile this morning. Most likely secondary to surgical stress and/or preoperative steroids. DC planning-patient is planning for outpatient PT upon discharge. Admission and Anticipated Discharge Date Admission Date: January 19, 2021 Subjective Postop day 1 Patient currently sitting up in bed awake and alert. No complaints. Pain is controlled. Denies shortness of breath, chest pain, lightheadedness. He is hoping to go home today. Physical Exam Physical Exam: Dressings are clean, dry, and intact. Calves are soft and nontender. Neurovascular is intact. Toes are mobile. He has good dorsiflexion and plantarflexion of the right foot. Hemovac drainage was 75 mL. Results & Data ([facility]) Vital Signs (Past 12 Hours) Vital Signs Temp Pulse Resp BP Pulse Ox 01/20/21 07:17 37.1 C 68 18 145/74 H 96 01/20/21 03:15 36.5 C 83 16 115/72 97 01/19/21 22:45 36.6 C 84 16 124/68 95 Laboratory Results 01/20/21 01/20/21 01/19/21 Range/Units 05:24 05:24 08:54 WBC 23.13 H (4.8-10.8) K/uL RBC 3.80 L (4.7-6.1) M/uL Hgb 12.2 L (14.0-18.0) g/dL Hct 36.6 L (42-52) % MCV 96.3 (80-100) fL MCH 32.1 (25-34) pg MCHC 33.3 (32-36) g/dL RDW Std Deviation 46.6 H (36.4-46.3) fL RDW Coeff of Jason 13.3 (11.5-14.5) % Plt Count 282 (130-400) K/uL MPV 10.4 (7.4-10.4) fL Sodium 139 (136-145) mmol/L Potassium 4.2 (3.5-5.1) mmol/L Chloride 108 H (98-107) mmol/L Carbon Dioxide 25 (21-32) mmol/L Anion Gap 6.0 (3-11) BUN 16 (7-18) mg/dl Creatinine 0.89 (0.6-1.4) mg/dl Est Cr Clr Drug Dosing 100.8 ml/min Est GFR ( Amer) 102.5 ml/min Est GFR (Non-Af Amer) 88.5 ml/min BUN/Creatinine Ratio 18.1 (10-20) Glucose 111 H (70-99) mg/dl Calcium 8.6 (8.5-10.1) mg/dl SARS-CoV-2, RNA, NAAT NEGATIVE (NEGATIVE) (1) Loosening of prosthesis of right total knee replacement Encounter type: subsequent encounter Qualified Code(s): T84.032D - Mechanical loosening of internal right knee prosthetic joint, subsequent encounter
--- NOTE | 2021-01-20 10:34 | Hospitalist Progress Note ---
Date of Service January 20, 2021 Assessment & Plan (1) Loosening of prosthesis of right total knee replacement: Mr. Gupta is a 65 year old male with a history of CAD s/p Intracoronary Stents, Hypertension, Dyslipidemia, Chronic Venous Insufficiency, and an Infrarenal AAA (5.8 cm) s/p Endovascular Repair 2018 who is POD #1 from a right knee polyethylene bearing change and patellar revision. Patient offers no complaints today. Patient states that his knee pain is very well controlled. He has been ambulating in the hallways, was able to navigate steps -- without any limiting cardiopulmonary symptoms. Patient has developed a mild postoperative anemia with a Hgb 12.2 g/dl, and he also has a leukocytosis -- which is likely demargination secondary to the stress of surgery. Patient is hemodynamically stable following surgery. He has not had any complications related to anesthesia nor has he had any other surgical complications. Patient anticipates being discharged today. 1. Continue pain management as per Ortho. 2. Continue frequent ambulation. 3. Continue with PT. 4. DVT prophylaxis as per Ortho. 5. Patient is stable from a medical standpoint for discharge to home. (2) CAD (coronary artery disease): Patient's cardiac history dates back to 2002 when he had 2 BMS placed in his proximal LAD at [facility]. He then underwent a Stress Echocardiogram in October 2010 which showed evidence of anteroapical ischemia. Subsequent Cardiac Catheterization 2010 at [facility] showed severe Mid LAD stenosis s/p [place] 3.0 x 15 mm LEONILA deployment. Other findings at that time included mild to moderate atherosclerotic disease of OM artery and moderate to severe mid RCA stenosis. RCA is a nondominant vessel. Collateral flow present from right coronary artery to apical LAD. Patient is stable from a cardiac standpoint. He has been ambulating in the hallways, and has never gated steps without limiting cardiopulmonary symptoms. Patient has not had any angina pectoris or anginal equivalent symptoms, overt signs or symptoms of heart failure, nor has he had any symptoms suggestive of dysrhythmia. 1. Continue Aspirin 81 mg daily. 2. Continue Atenolol 25 mg daily. 3. Continue Lisinopril 10 mg daily. 4. Continue Atorvastatin 80 mg daily. 5. Continue Plavix 75 mg daily. (3) Hypertension: -- Continue Atenolol 25 mg daily. -- Continue Lisinopril 10 mg daily. (4) Hyperlipidemia: -- Continue Atorvastatin 80 mg daily. Admission and Anticipated Discharge Date Admission Date: January 19, 2021 Supervising Physician Co-Signing Physician Notes I supervised Cesario Kate on this consultation. I did not see the patient as they were discharged by the primary team prior to 24 hours after the consult was placed. No acute medical issues that would prevent discharge and cannot be followed up by her PCP. Subjective Mr. Gupta is a 65 year old male with a history of CAD s/p Intracoronary Stents, Hypertension, Dyslipidemia, Chronic Venous Insufficiency, and an Infrarenal AAA (5.8 cm) s/p Endovascular Repair 2018 who is POD #1 from a right knee polyethylene bearing change and patellar revision. Patient is currently being seen in room 311. Patient offers no complaints today. He has been ambulating in the hallways, was able to navigate steps -- without any limiting cardiopulmonary symptoms. Patient states that his knee pain is very well controlled. Patient specifically denies any exertional angina pectoris, exertional chest discomfort, or any limiting dyspnea. He specifically denies any exertional chest pain, heaviness, tightness, pressure, or fullness. He denies any exertional neck, jaw, back, or arm pain. He denies any shortness of breath, unusual dyspnea exertion, or any recent changes in his exertional tolerance. Patient further denies any orthopnea, PND, palpitations, syncope, or near syncope. Patient remains compliant with his medications and has not had any adverse side effects. HISTORICAL BACKGROUND: Patient's cardiac history dates back to 2002 when he had 2 BMS placed in his proximal LAD at [facility]. He then underwent a Stress Echocardiogram in October 2010 which showed evidence of anteroapical ischemia. Subsequent Cardiac Catheterization 2010 at [facility] showed severe Mid LAD stenosis s/p [place] 3.0 x 15 mm LEONILA deployment. Other findings at that time included mild to moderate atherosclerotic disease of OM artery and moderate to severe mid RCA stenosis. RCA is a nondominant vessel. Collateral flow present from right coronary artery to apical LAD. Review of Systems Review of Systems: All systems reviewed & are unremarkable except as noted in Subjective Physical Exam Physical Exam: GENERAL: Patient in no acute distress. HEENT: Head is atraumatic, normocephalic. EOM's intact. Facies symmetric. No perioral cyanosis. NECK: No JVD. JVP is at the level of the clavicle sitting upright. Carotid upstrokes are + 2 bilaterally. No bruits are noted. CHEST/LUNGS: Clear to auscultation throughout all lung arrington. No wheezes, rales, or crackles. CVS: S1 and S2 are regular without obvious murmurs, gallops, or rubs. PMI is nondisplaced. No lifts, heaves, or thrills. No abdominal aortic or renal bruits. ABDOMINAL EXAM: Bowel sounds are present. No masses, organomegaly, or tenderness. EXTREMITIES: Right knee is dressed, surgical drain is in place. No clubbing or cyanosis. No edema. Intact posterior tibial and radial pulses bilaterally. NEUROLOGIC EXAM: Patient is awake, alert, and oriented. Pleasant and cooperative. Answers questions appropriately. Speech is clear. Normal movement in all 4 extremities. Gait pattern was not assessed. Results & Data Results & Data ([facility]) Vital Signs (Past 12 Hours) Vital Signs Temp Pulse Resp BP Pulse Ox 01/20/21 10:24 37.1 C 68 18 145/74 H 96 01/20/21 07:17 37.1 C 68 18 145/74 H 96 01/20/21 03:15 36.5 C 83 16 115/72 97 01/19/21 22:45 36.6 C 84 16 124/68 95 Laboratory Results Laboratory Results - last 24 hr 01/19/21 01/20/21 01/20/21 08:54 05:24 05:24 WBC 23.13 H RBC 3.80 L Hgb 12.2 L Hct 36.6 L MCV 96.3 MCH 32.1 MCHC 33.3 RDW Std Deviation 46.6 H RDW Coeff of Jason 13.3 Plt Count 282 MPV 10.4 Sodium 139 Potassium 4.2 Chloride 108 H Carbon Dioxide 25 Anion Gap 6.0 BUN 16 Creatinine 0.89 Est Cr Clr Drug Dosing 100.8 Est GFR ( Amer) 102.5 Est GFR (Non-Af Amer) 88.5 BUN/Creatinine Ratio 18.1 Glucose 111 H Calcium 8.6 SARS-CoV-2, RNA, NAAT NEGATIVE Diagnostic Findings KNEE X-RAY 01/19/21: Right knee total joint arthroplasty with patellar resurfacing. Anterior midline skin ava are noted along with expected postoperative soft tissue swelling and deep tissue air with surgical drainage catheter. Arterial calcifications. No acute fracture or unexpected opaque foreign body. IMPRESSION: -- Right knee total joint arthroplasty with expected postoperative changes. Medications Administered Medications nitroglycerin [Nitrostat] 1 tab SUBLINGUAL UD PRN 07/10/18 [History Confirmed 01/19/21] aspirin [Aspirin Low Dose] 81 mg PO QAM 08/25/20 [History Confirmed 01/19/21] acetaminophen [Tylenol Extra Strength] 1,000 mg PO Q6H PRN 12/21/20 [History Confirmed 01/19/21] atenolol 25 mg tablet 25 mg PO QAM #90 tab 01/04/21 [Rx Confirmed 01/19/21] atorvastatin 80 mg tablet 80 mg PO PM #90 tab 01/04/21 [Rx Confirmed 01/19/21] clopidogrel 75 mg tablet 75 mg PO QAM #90 tab 01/04/21 [Rx Confirmed 01/19/21] lisinopril 10 mg tablet 10 mg PO QAM #90 tab 01/04/21 [Rx Confirmed 01/19/21] acetaminophen 1,000 mg PO Q8 14 Days #84 tab 01/20/21 [Rx] aspirin [Ecotrin Low Strength] 81 mg PO BID 30 Days #60 tab 01/20/21 [Rx] cefadroxil 500 mg PO BID #14 cap 01/20/21 [Rx] oxycodone 5 - 10 mg PO Q4H PRN #36 tab 01/20/21 [Rx] polyethylene glycol 3350 [Miralax] 17 g PO DAILY PRN #5 ea 01/20/21 [Rx] Home Medications Acetaminophen (Acetaminophen 500 Mg Tab) 1,000 mg PO Q8 VAL Stop: 02/18/21 21:59 Last Admin: 01/20/21 05:54 Dose: 1,000 mg Documented by: Aspirin (Aspirin 81 Mg Ectab) 81 mg PO QAM VAL Stop: 02/19/21 08:59 Last Admin: 01/20/21 07:21 Dose: 81 mg Documented by: Atenolol (Atenolol 25 Mg Tablet) 25 mg PO QAM VAL Stop: 02/19/21 08:59 Last Admin: 01/20/21 07:21 Dose: 25 mg Documented by: Atorvastatin Calcium (Atorvastatin 40 Mg Tab) 80 mg PO PM VAL Stop: 02/18/21 20:59 Last Admin: 01/19/21 20:55 Dose: 80 mg Documented by: Bisacodyl (Bisacodyl 10 Mg Supp) 10 mg UT DAILY PRN PRN Reason: Constipation Stop: 02/18/21 16:26 Clopidogrel Bisulfate (Clopidogrel Bisulfate 75 Mg Tab) [facility] [place]: 02/19/21 08:59 Last Admin: 01/20/21 07:21 Dose: 75 mg Documented by: Docusate Sodium (Docusate Sodium 100 Mg Cap) 100 mg PO BID [facility] Stop: 02/18/21 20:59 Last Admin: 01/20/21 07:20 Dose: 100 mg Documented by: Hydromorphone HCl (Hydromorphone Inj 0.5 Mg/0.5 Ml Syr) 0.5 mg IV Q4H PRN PRN Reason: Pain or Pre PT Stop: 02/02/21 16:26 Lisinopril (Lisinopril 10 Mg Tab) 10 mg PO [facility] Stop: 02/19/21 08:59 Last Admin: 01/20/21 07:21 Dose: 10 mg Documented by: Magnesium Hydroxide (Magnesium Hydroxide Susp 30 Ml Udc) 30 ml PO Q6H PRN PRN Reason: Constipation Stop: 02/18/21 16:26 Metoclopramide HCl (Metoclopramide Hcl Inj 5 Mg/Ml 2 Ml Vial) 10 mg IV Q6H PRN PRN Reason: Nausea And Vomiting Stop: 02/18/21 16:26 Multivitamins (Multivitamin Tab) 1 tab PO [facility] Stop: 02/19/21 08:59 Last Admin: 01/20/21 07:21 Dose: 1 tab Documented by: Naloxone HCl (Naloxone Hcl 0.4 Mg/1 Ml Vial/Carp) 0.1 mg IV Q5M PRN PRN Reason: Oversedation/Resp Depression Stop: 02/18/21 16:26 Nitroglycerin (Nitroglycerin Sl 0.4 Mg/Tab Tab) 0.4 mg SL UD PRN PRN Reason: CHEST PAIN Stop: 02/18/21 16:26 Ondansetron HCl (Ondansetron Inj 2 Mg/Ml 2 Ml Vial) 4 mg IV Q6H PRN PRN Reason: Nausea And Vomiting Stop: 02/18/21 16:26 Oxycodone HCl (Oxycodone Hcl Ir 5 Mg Tab (Immediate Release)) 5 - 10 mg PO Q4H PRN PRN Reason: Pain or Pre PT Stop: 02/02/21 16:26 Sennosides (Senna 8.6 Mg Tab) 17.2 mg PO HS VAL Stop: 02/18/21 20:59 Last Admin: 01/19/21 20:59 Dose: 17.2 mg Documented by: Tamsulosin HCl (Tamsulosin Hcl 0.4 Mg Cap) 0.4 mg PO QAM PRN PRN Reason: UNABLE to void Stop: 02/18/21 16:26 PG Care Time/CCT Total # of Minutes Spent Total Time Spent with Patient: Total time spent is greater than 50% in coordination of care (as documented) at patient's floor/unit and/or counseling patient:30 Coding Level of Care Code 47609 Subseq Obs Care Lvl 3 Diagnoses Loosening of prosthesis of right total knee replacement T84.032D Encounter type: subsequent encounter CAD (coronary artery disease) I25.10 Hypertension I10 Hypertension type: unspecified Hyperlipidemia E78.5 (1) Loosening of prosthesis of right total knee replacement Encounter type: subsequent encounter Qualified Code(s): T84.032D - Mechanical loosening of internal right knee prosthetic joint, subsequent encounter (2) Hypertension Hypertension type: unspecified Qualified Code(s): I10 - Essential (primary) hypertension
--- NOTE | 2021-01-20 17:40 | Discharge Summary ---
Date of Service January 20, 2021 Admission HPI Per Admitting Provider 65 year old male with PMHx significant for HTN, high cholesterol, CAD with stents presents with ongoing right knee pain. He has history of TKA. 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 He has continued pain interfering with his daily activities and would like to proceed with revision surgery. Patient denies headaches, sweats, fevers, chills, double vision, blurred vision, cough, sore throat, dysphagia, chest pain, sob, wheezing, n/v/d/c, numbness, tingling, fatigue, urinary symptoms, mood disorders. ROS positive for right knee pain and stiffness. Admission Exam Per Admitting Provider Constitutional: well developed and well nourished; no acute distress Eyes: PERRL, conjunctivae normal, anicteric sclerae ENMT: external ear and nose normal, oropharynx normal Neck: trachea midline, no thyromegaly Respiratory: normal respiratory effort, lungs clear to auscultation Cardiovascular: RRR, no murmur, no edema Musculoskeletal: Right knee: No erythema, surgical scars. Moderate effusion. Moderate crepitation, stable to valgus and varus stress. ROM 0-100 degrees. 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 Discharge Exam Constitutional well developed and well nourished; no acute distress Eyes PERRL, conjunctivae normal, anicteric sclerae ENMT external ear and nose normal, oropharynx normal Neck trachea midline, no thyromegaly Respiratory normal respiratory effort, lungs clear to auscultation Cardiovascular RRR, no murmur, no edema Skin no rashes, warm and dry Neurologic patellar DTR's 2+ bilat, sensation intact Psychiatric A+Ox3, euthymic affect Discharge Data Allergies Allergy/AdvReac Type Severity Reaction Status Date / Time adhesive Allergy Mild Rash, Verified 01/19/21 09:10 irritation (paper tape) No Known Drug Allergies Allergy Unknown NKA Verified 01/19/21 09:10 Consultations 01/14/21 15:34 Consult Hospitalist Routine Procedures Performed Operation Date: 01/19/21 11:50 Actual Procedures p Right Knee: Synovectomy, Polyethelyne Exchange Tibia, Patellar Revision, lateral release(Right) - Saeed Arias MD Ordered Studies 01/19/21 05:00 US - OR guided needle placemen Routine Hospital Course (1) Loosening of prosthesis of right total knee replacement: Lab Results 01/19/21 01/19/21 01/20/21 Range/Units 08:54 08:54 05:24 WBC 23.13 H (4.8-10.8) K/uL RBC 3.80 L (4.7-6.1) M/uL Hgb 12.2 L (14.0-18.0) g/dL Hct 36.6 L (42-52) % MCV 96.3 (80-100) fL MCH 32.1 (25-34) pg MCHC 33.3 (32-36) g/dL RDW Std Deviation 46.6 H (36.4-46.3) fL RDW Coeff of Jason 13.3 (11.5-14.5) % Plt Count 282 (130-400) K/uL MPV 10.4 (7.4-10.4) fL Sodium (136-145) mmol/L Potassium (3.5-5.1) mmol/L Chloride (98-107) mmol/L Carbon Dioxide (21-32) mmol/L Anion Gap (3-11) BUN (7-18) mg/dl Creatinine (0.6-1.4) mg/dl Est Cr Clr Drug Dosing ml/min Est GFR ( Amer) ml/min Est GFR (Non-Af Amer) ml/min BUN/Creatinine Ratio (10-20) Glucose (70-99) mg/dl Calcium (8.5-10.1) mg/dl COVID-19 Eval [facility] SARS-[facility]-2, RNA, NAAT NEGATIVE (NEGATIVE) 01/20/21 Range/Units 05:24 WBC (4.8-10.8) K/uL RBC (4.7-6.1) M/uL Hgb (14.0-18.0) g/dL Hct (42-52) % MCV (80-100) fL MCH (25-34) pg MCHC (32-36) g/dL RDW Std Deviation (36.4-46.3) fL RDW Coeff of Jason (11.5-14.5) % Plt Count (130-400) K/uL MPV (7.4-10.4) fL Sodium 139 (136-145) mmol/L Potassium 4.2 (3.5-5.1) mmol/L Chloride 108 H (98-107) mmol/L Carbon Dioxide 25 (21-32) mmol/L Anion Gap 6.0 (3-11) BUN 16 (7-18) mg/dl Creatinine 0.89 (0.6-1.4) mg/dl Est Cr Clr Drug Dosing 100.8 ml/min Est GFR ( Amer) 102.5 ml/min Est GFR (Non-Af Amer) 88.5 ml/min BUN/Creatinine Ratio 18.1 (10-20) Glucose 111 H (70-99) mg/dl Calcium 8.6 (8.5-10.1) mg/dl COVID-19 Eval Order SARS-CoV-2, RNA, NAAT (NEGATIVE) Patient presented for same day admission following right knee revision patella, poly exchange, and synovectomy on 01/20/21. He tolerated procedure well. The Patient had an uneventful hospital course. Post-operatively, his activity was progressed and well tolerated. They participated in PT with ambulation distance of 300 feet. ROM of operative knee reached 85 degrees. Labs remained stable- lowest hemoglobin recorded: 12.2, leukocytosis likely due to surgical stress/perioperative steroids. Intraoperative cultures with no grown on POD#1, gram stain with rare WBCs and no organisms. [facility] hospitalist service was consulted for medical management during admission. Pain controlled on oral medications. Please refer to daily progress notes and PT notes for complete details. After exam on 01/20/21, patient was felt to be stable for discharge home with plans on attending outpatient PT. Patient will f/u in the office in about 2 weeks for further evaluation including x-rays and incision check, sooner if having any issues or concerns. Postop day 1 status post right polyethylene bearing change and revision patella. PT/OT protocols. Weightbearing as tolerated. DVT prophylaxis-p.o. Plavix and aspirin. SCDs. Pain management as written. Leukocytosis. Patient is asymptomatic and afebrile this morning. Most likely secondary to surgical stress and/or preoperative steroids. DC planning-patient is planning for outpatient PT upon discharge. Total Time Total Time Spent Total Time Spent (In Minutes): 20 Discharge Plan Discharge Items Patient Disposition: Home - Self-Care Reason For Visit: Right Knee Faled Poly and Patellar Components Tota Discharge Diagnosis: Right TKA failed Poly and Patelar components Activity: Per Instructions section Weightbearing: Right weightbearing Weightbearing Comment: As tolerated with walker. Non-emergency contact: Surgeon Call non-emergency contact if: your pain is not controlled, your temperature is above 101.5, your wound has increased redness and your wound has increased drainage Follow-up/Referrals: Johan Davidson MD [Primary Care Provider] - 01/26/21 8:00 am Diet: Regular Addtl Attending Provider Instructions: ACTIVITY RECOMMENDATIONS: SELF CARE INSTRUCTIONS AFTER TOTAL KNEE POLYEHTHYLENE BEARING CHANGE/ PATELLAR REVSION A. You may need to continue a physical therapy program after discharge from the hospital. There are several options available to you. Your doctor will assist you in selecting the best one for you PLAN FOR GENTLE RANGE OF MOTION INITIALLY OF THE RIGHT KNEE. 1. An out-patient facility 2 to 3 times a week for therapy or home therapy. 2. Continue working on all exercises taught to you in the hospital. Your goals should be to increase bending of your knee to 90 degrees and beyond and to fully straighten your knee. B. You may progress at your own pace from walking with a walker or crutches to a cane; then to no assistive devices. C. Make walking a part of your daily routine. Be up as much as comfortable with rest periods throughout the day. Rest with leg elevation is very important. Use the ice wrap frequently for the first 3-4 weeks. D. There are no restrictions on activities. You may ride in a car, shop, participate in tableau developer and all social activities. E. Wear the long elastic stockings (MINGO hose) 20 hours a day for 2 weeks after surgery. They can be removed several times a day for laundering and for a bath. F. YOU MAY SHOWER IN 48 HOURS. NO DIRECT SHOWER PRESSURE TO THE WOUND. DO NOT SOAK THE WOUND. NO TUB BATHS, HOT TUBS, OR SWIMMING POOLS UNTIL CLEARED BY YOUR SURGEON. SPECIAL CARE INSTRUCTIONS: VERY IMPORTANT TO READ AND REVIEW A. There are a few signs you need to watch for after you are home. Call [facility] if you notice any of the followin. Increased severe knee pain. Some pain is expected especially when you exercise. 2. Increased swelling in your leg or knee; pain or swelling of the calf muscle in either lower leg. 3. Any fluid drainage from the incision. 4. Shortness of breath or chest pain. B. Please call [facility] at if you have any concerns or questions about your operation or recovery. The doctor or his nurse will return your call promptly. C. You must take antibiotics before dental work, bladder, bowel or other surgery. Your doctor will provide you with a permanent care to carry describing this precaution. IMPORTANT: * REMEMBER TO TAKE ASPIRIN, 81 MG, TWICE DAILY ALONG WITH YOUR PLAVIX FOR 4 WEEKS UNLESS OTHERWISE DIRECTED. THIS IS YOUR BLOOD THINNER. * HIGH RISK PATIENTS MAY BE PRESCRIBED A STRONGER BLOOD THINNER. THIS WILL BE PROVIDED AT DISCHARGE. * CALL IF INCREASED PAIN, REDNESS, DRAINAGE OR FEVER GREATER THAT 101. * WEAR MINGO HOSE 20 HOURS PER DAY FOR 2 WEEKS. * CHANGE DRESSING DAILY. KEEP WOUND COVERED WITH A DRESSING UNTIL SEEN BACK IN THE OFFICE. YOU MAY USE 4X4 GAUZE, TAPE OR AN ACEWRAP TO KEEP DRESSING IN PLACE. . FOLLOW UP VISIT: If appointment is not already scheduled: Please call [facility] to make a follow-up appointment for [address] Arias or his PA after your surgery at . Stand-Alone Forms: [employer], Smoking Cessation Medications and DC Order Prescriptions: New acetaminophen 500 mg Tablet 1,000 mg PO Q8 14 Days Qty: 84 RF: 0 oxycodone 5 mg Tablet 5 - 10 mg PO Q4H PRN (Reason: pain) Qty: 36 RF: 0 polyethylene glycol 3350 [Miralax] 17 gram powder in packet 17 g PO DAILY PRN (Reason: constipation) Qty: 5 RF: 0 aspirin [Ecotrin Low Strength] 81 mg tablet,delayed release (DR/EC) 81 mg PO BID 30 Days Qty: 60 RF: 0 cefadroxil 500 mg capsule 500 mg PO BID Qty: 14 RF: 0 Continued atenolol 25 mg tablet 25 mg PO QAM Qty: 90 RF: 3 atorvastatin 80 mg tablet 80 mg PO PM Qty: 90 RF: 3 clopidogrel 75 mg tablet 75 mg PO QAM Qty: 90 RF: 3 lisinopril 10 mg tablet 10 mg PO QAM Qty: 90 RF: 3 nitroglycerin [Nitrostat] 0.4 mg Tablet, Sublingual 1 tab Sublingual UD PRN (Reason: CHEST PAIN) RF: 0 Discontinued aspirin [Aspirin Low Dose] 81 mg Tablet,Delayed Release (Dr/Ec) 81 mg PO QAM RF: 0 acetaminophen [Tylenol Extra Strength] 500 mg Capsule 1,000 mg PO Q6H PRN (Reason: Pain) RF: 0 Discharge Orders: Discharge Order (Routine); Ordered 01/20/21 Ordered By: Chano Yoder Admission Data Admit Date/Time: 01/19/21 15:37 Attending Provider: Saeed Arias Admit Provider: Saeed Arias Primary Care Provider: Johan Davidson Other Providers: Carlos Bauer. Other Interventions: Discharge Summary Assessment (RN) Last Done: 01/20/21 11:37
== END 2021-01-20 13:12 | disposition home or self-care (01) | DRG 467 ==
LOC: ASU 08:39 → 3E 08:39 → OBSVTOIN 15:37
DX: M19.90 Unspecified osteoarthritis, unspecified site; E66.9 Obesity, unspecified; E78.5 Hyperlipidemia, unspecified; Z68.37 Body mass index [BMI] 37.0-37.9, adult; Z98.890 Other specified postprocedural states; M65.861 Other synovitis and tenosynovitis, right lower leg; Z87.891 Personal history of nicotine dependence; M87.38 Other secondary osteonecrosis, other site; Y83.1 Surgical operation with implant of artificial internal device as the cause of abnormal reaction of the patient, or of later complication, without mention of misadventure at the time of the procedure; Z91.048 Other nonmedicinal substance allergy status; T84.032A Mechanical loosening of internal right knee prosthetic joint, initial encounter; R73.03 Prediabetes; Z86.73 Personal history of transient ischemic attack (TIA), and cerebral infarction without residual deficits; I10 Essential (primary) hypertension; Z20.822 Contact with and (suspected) exposure to COVID-19; Z79.899 Other long term (current) drug therapy; D72.829 Elevated white blood cell count, unspecified; Y79.2 Prosthetic and other implants, materials and accessory orthopedic devices associated with adverse incidents; Z86.79 Personal history of other diseases of the circulatory system; Z95.5 Presence of coronary angioplasty implant and graft; T84.052A Periprosthetic osteolysis of internal prosthetic right knee joint, initial encounter; Z79.82 Long term (current) use of aspirin; I25.10 Atherosclerotic heart disease of native coronary artery without angina pectoris; Z79.02 Long term (current) use of antithrombotics/antiplatelets